=== PATIENT | female | born 1990 | race Hispanic/Latino ===

== ENCOUNTER 2019-01-01 14:11 | Emergency (ER) | payer SELFPAY ==
--- OUTSIDE RECORDS SUMMARY | 2019-01-01 14:13 | XMS REPORT ---
:1990 [facility] Address [address] [place] [address] Dr. Burgess [address] [place] [id number] Care Team Providers Name Role Phone Unavailable Unavailable Unavailable Problems This patient has no known problems. Allergies, Adverse Reactions, Alerts This patient has no known allergies or adverse reactions. Medications This patient has no known medications.
[2019-01-01 15:09] LABS: Urine Blood 3+ (NEG); Urine Glucose NEGATIVE (NEG); Urine Protein NEGATIVE (NEG)
[2019-01-01 15:18] LABS: Absolute Lymphocytes (CBC) 2.2 K/uL (0.7-4.9); Basophils % 0.5 % (0-1.3); Eosinophils % 10.2 % (0-4.4); Hematocrit 40.1 % (36.0-45.0); Lymphocytes % 22.4 % (15.3-44.8); MPV 9.8 fL (7.6-11.3); Monocytes % 6.2 % (3.3-12.3); RBC Red Blood Cell Count 4.54 M/uL (3.86-4.86)
[2019-01-01] MEDS ORDERED: KETOROLAC 30 MG/ML INJ ONE (15:19)
[2019-01-01] MEDS ORDERED: NA CHLORIDE 0.9% 1,000 ML ONE (15:19)
[2019-01-01] MEDS ORDERED: FAMOTIDINE 20 MG/2 ML VIAL IV ONE (15:19)
[2019-01-01 15:32] LABS: ALT/SGPT 16 U/L (12-78); AST/SGOT 14 U/L (15-37); Albumin 3.6 g/dL (3.4-5.0); Alkaline Phosphatase 82 U/L (45-117); BUN Blood Urea Nitrogen 14 mg/dL (7-18); Bicarbonate 27 mmol/L (21-32); Bilirubin Direct < 0.1 mg/dL (0-0.2); Bilirubin Total 0.2 mg/dL (0.2-1.0); Glucose Level 111 mg/dL (74-106); Lipase 336 U/L (73-393); Potassium 3.8 mmol/L (3.5-5.1); Protein, Total 7.8 g/dL (6.4-8.2); Sodium Level 142 mmol/L (136-145)
--- NOTE | 2019-01-01 16:28 | EDPHYS ---
Physician Documentation [facility] Name: Kellie Ortega Age: 28 yrs Sex: Female : 1990 Arrival Date: 01/01/2019 Time: 14:14 Bed 19 Private MD: ED Physician Enrico Mcleod HPI: 01/01 15:40 This 28 yrs old Female presents to ER via Ambulatory with complaints of kb Abdominal Pain. 15:40 The patient presents with abdominal pain in the right upper quadrant. Onset: The kb symptoms/episode began/occurred 10 day(s) ago, and became worse today. The symptoms radiate to back. Associated signs and symptoms: none. The symptoms are described as dull, intermittent. Modifying factors: The symptoms are alleviated by nothing, the symptoms are aggravated by nothing. Severity of pain: At its worst the pain was moderate in the emergency department the pain is unchanged. The patient has not experienced similar symptoms in the past. The patient has been recently seen by a physician:. Pt reports upper abd pain that started 10 days ago. States the pain has been intermittent. Today the pain started 2 hours ago and has persisted. States the pain is random when it comes. Was seen at the clinic for this and tested negative for H.Pylori. Historical: - Allergies: 14:33 PENICILLINS; la1 - PMHx: 14:33 None; la1 - Immunization history:: Adult Immunizations up to date. - Social history:: Smoking status: Patient/guardian denies using tobacco. - Ebola Screening: : No symptoms or risks identified at this time. ROS: 15:39 Constitutional: Negative for fever, chills, and weight loss, Cardiovascular: Negative kb for chest pain, palpitations, and edema, Respiratory: Negative for shortness of breath, cough, wheezing, and pleuritic chest pain, Back: Negative for injury and pain, : Negative for injury, bleeding, discharge, and swelling, MS/Extremity: Negative for injury and deformity, Skin: Negative for injury, rash, and discoloration, Neuro: Negative for headache, weakness, numbness, tingling, and seizure. 15:39 Abdomen/GI: Positive for abdominal pain, Negative for nausea, vomiting, and diarrhea, constipation, abdominal cramps, abdominal distension, anorexia. Exam: 15:39 Constitutional: This is a well developed, well nourished patient who is awake, alert, kb and in no acute distress. Head/Face: Normocephalic, atraumatic. ENT: Nares patent. No nasal discharge, no septal abnormalities noted. Tympanic membranes are normal and external auditory canals are clear. Oropharynx with no redness, swelling, or masses, exudates, or evidence of obstruction, uvula midline. Mucous membranes moist. Neck: Trachea midline, no thyromegaly or masses palpated, and no cervical lymphadenopathy. Supple, full range of motion without nuchal rigidity, or vertebral point tenderness. No Meningismus. Chest/axilla: Normal chest wall appearance and motion. Nontender with no deformity. No lesions are appreciated. Cardiovascular: Regular rate and rhythm with a normal S1 and S2. No gallops, murmurs, or rubs. Normal PMI, no JVD. No pulse deficits. Respiratory: Lungs have equal breath sounds bilaterally, clear to auscultation and percussion. No rales, rhonchi or wheezes noted. No increased work of breathing, no retractions or nasal flaring. Back: No spinal tenderness. No costovertebral tenderness. Full range of motion. Skin: Warm, dry with normal turgor. Normal color with no rashes, no lesions, and no evidence of cellulitis. MS/ Extremity: Pulses equal, no cyanosis. Neurovascular intact. Full, normal range of motion. Neuro: Awake and alert, GCS 15, oriented to person, place, time, and situation. Cranial nerves II-XII grossly intact. Motor strength 5/5 in all extremities. Sensory grossly intact. Cerebellar exam normal. Normal gait. 15:39 Abdomen/GI: Inspection: abdomen appears normal, Bowel sounds: normal, in all quadrants, Palpation: soft, in all quadrants, moderate abdominal tenderness, in the epigastric area. Vital Signs: 14:33 BP 138 / 78; Pulse 70; Resp 16; Temp 97.6; Pulse Ox 98% on R/A; Weight 58.97 kg; Height la1 5 ft. 2 in. (157.48 cm); Pain 8/10; 15:42 BP 116 / 62; Pulse 66; Resp 18; Pulse Ox 99% on R/A; Pain 0/10; em 16:50 BP 104 / 64; Pulse 66; Resp 18; Pulse Ox 99% on R/A; em 14:33 Body Mass Index 23.78 (58.97 kg, 157.48 cm) la1 MDM: 14:27 Patient medically screened. kb 15:39 Data reviewed: vital signs, nurses notes. Data interpreted: Pulse oximetry: on room air kb is 98 %. Interpretation: normal. 16:27 Counseling: I had a detailed discussion with the patient and/or guardian regarding: the kb historical points, exam findings, and any diagnostic results supporting the discharge/admit diagnosis, lab results, radiology results, the need for outpatient follow up, a family practitioner, a salesperson art objects, to return to the emergency department if symptoms worsen or persist or if there are any questions or concerns that arise at home. 01/01 14:33 Order name: Basic Metabolic Panel; Complete Time: 15:35 kb 01/01 14:33 Order name: CBC with Diff; Complete Time: 15:28 kb 01/01 14:33 Order name: Hepatic Function; Complete Time: 15:35 kb 01/01 14:33 Order name: Lipase; Complete Time: 15:35 kb 01/01 15:04 Order name: Urine Dipstick--Ancillary (enter results); Complete Time: 15:14 eb 01/01 15:04 Order name: Urine --Ancillary (enter results); Complete Time: 15:14 eb 01/01 14:33 Order name: IV Saline Lock; Complete Time: 15:13 kb 01/01 14:33 Order name: Labs collected and sent; Complete Time: 15:13 kb 01/01 15:39 Order name: US Abdomen Limited kb Administered Medications: 15:05 Drug: Pepcid 20 mg Route: IVP; Site: right antecubital; iw 16:30 Follow up: Response: No adverse reaction; Pain is decreased em 15:06 Drug: TORadol 30 mg Route: IVP; Site: right antecubital; iw 16:30 Follow up: Response: No adverse reaction; Pain is decreased em 15:13 Drug: NS 0.9% 1000 ml Route: IV; Rate: 1000 ml; Site: right antecubital; em 16:29 Follow up: IV Status: Completed infusion; IV Intake: 1000ml em Disposition: 01/01/19 16:28 Discharged to Home. Impression: Upper abdominal pain, unspecified. - Condition is Stable. - Discharge Instructions: Abdominal Pain, Adult, [id number]. - Prescriptions for Bentyl 20 mg Oral Tablet - take 1 tablet by ORAL route every 6 hours As needed; 20 tablet. - Medication Reconciliation Form, Thank You Letter, Antibiotic Education, Prescription Opioid Use form. - Follow up: Emergency Department; When: As needed; Reason: Worsening of condition. Follow up: Private Physician; When: 2 - 3 days; Reason: Recheck today's complaints, Continuance of care, Re-evaluation by your physician. Addendum: 01/03/2019 09:37 Co-signature as Attending Physician, Enrico Mcleod MD I agree with the assessment and c hatch plan of care. Signatures: Dispatcher [employer] EDAliza Das, KALEY-C WOOL HAT FLANGER-Enrico Gonzales MD MD cha Munoz, Edgar, PACKAGE SORTER PACKAGE SORTER em Cindy Chatterjee, RN RN iw Shahriar Girard RN RN la1 Corrections: (The following items were deleted from the chart) 01/01 16:51 16:28 01/01/2019 16:28 Discharged to Home. Impression: Upper abdominal pain, em unspecified. Condition is Stable. Forms are Medication Reconciliation Form, Thank You Letter, Antibiotic Education, Prescription Opioid Use. Follow up: Emergency Department; When: As needed; Reason: Worsening of condition. Follow up: Private Physician; When: 2 - 3 days; Reason: Recheck today's complaints, Continuance of care, Re-evaluation by your physician. kb
--- NOTE | 2019-01-01 16:28 | ER ---
Nurse's Notes [facility] Name: Kellie Ortega Age: 28 yrs Sex: Female : 1990 Arrival Date: 01/01/2019 Time: 14:14 Bed 19 Private MD: Diagnosis: Upper abdominal pain, unspecified Presentation: 01/01 14:32 Presenting complaint: Patient states: I have had really bad upper abd pain that la1 radiates to my back for the last hour. Transition of care: patient was not received from another setting of care. Onset of symptoms was January 01, 2019. Risk Assessment: Do you want to hurt yourself or someone else? Patient reports no desire to harm self or others. Initial Sepsis Screen: Does the patient meet any 2 criteria? No. Patient's initial sepsis screen is negative. Does the patient have a suspected source of infection? No. Patient's initial sepsis screen is negative. Care prior to arrival: None. 14:32 Method Of Arrival: Ambulatory la1 14:32 Acuity: FOREST 3 la1 Historical: - Allergies: 14:33 PENICILLINS; la1 - PMHx: 14:33 None; la1 - Immunization history:: Adult Immunizations up to date. - Social history:: Smoking status: Patient/guardian denies using tobacco. - Ebola Screening: : No symptoms or risks identified at this time. Screenin:00 Abuse screen: Denies threats or abuse. Nutritional screening:. Tuberculosis screening: em No symptoms or risk factors identified. Fall Risk None identified. Assessment: 15:00 General: Appears in no apparent distress. uncomfortable, Behavior is calm, cooperative, em Denies fever. Pain: Complains of pain in epigastric area. Neuro: Level of Consciousness is awake, alert, obeys commands, Oriented to person, place, time, situation. Cardiovascular: Capillary refill < 3 seconds Patient's skin is warm and dry. Respiratory: Airway is patent Respiratory effort is even, unlabored, Respiratory pattern is regular, symmetrical. GI: Abdomen is flat, Bowel sounds present X 4 quads. Abd is soft X 4 quads Abdomen is tender to palpation in epigastric area Patient currently denies diarrhea, nausea, vomiting. : Denies burning with urination. Derm: Skin is intact, is healthy with good turgor, Skin is pink, warm \T\ dry. Musculoskeletal: Capillary refill < 3 seconds, Range of motion: intact in all extremities. 15:15 Reassessment: Patient appears in no apparent distress at this time. I agree with above iw assessment by Jesus Seay LVN. 15:41 Reassessment: Patient appears in no apparent distress at this time. Patient and/or em family updated on plan of care and expected duration. Pain level reassessed. Patient is alert, oriented x 3, equal unlabored respirations, skin warm/dry/pink. Patient denies pain at this time. Patient states feeling better. Patient states symptoms have improved. 16:46 Reassessment: Patient appears in no apparent distress at this time. Patient and/or em family updated on plan of care and expected duration. Pain level reassessed. Patient is alert, oriented x 3, equal unlabored respirations, skin warm/dry/pink. Vital Signs: 14:33 BP 138 / 78; Pulse 70; Resp 16; Temp 97.6; Pulse Ox 98% on R/A; Weight 58.97 kg; Height la1 5 ft. 2 in. (157.48 cm); Pain 8/10; 15:42 BP 116 / 62; Pulse 66; Resp 18; Pulse Ox 99% on R/A; Pain 0/10; em 16:50 BP 104 / 64; Pulse 66; Resp 18; Pulse Ox 99% on R/A; em 14:33 Body Mass Index 23.78 (58.97 kg, 157.48 cm) la1 ED Course: 14:14 Patient arrived in ED. mr 14:26 Aliza Ray FNP-C [facility]. kb 14:26 Enrico Mcleod MD is Attending Physician. kb 14:33 Triage completed. la1 14:33 Arm band placed on left wrist. la1 14:34 Jesus Seay LVN is Primary Nurse. em 15:00 Patient has correct armband on for positive identification. Placed in gown. Bed in low em position. Side rails up X2. Adult w/ patient. Pulse ox on. NIBP on. 15:00 Initial lab(s) drawn, by me, sent to lab. Urine collected: clean catch specimen, clear. em Inserted saline lock: 20 gauge in right antecubital area, using aseptic technique. Blood collected. 16:18 US Abdomen Limited In Process Unspecified. EDMS 16:46 No provider procedures requiring assistance completed. IV discontinued, intact, em bleeding controlled, No redness/swelling at site. Pressure dressing applied. Administered Medications: 15:05 Drug: Pepcid 20 mg Route: IVP; Site: right antecubital; iw 16:30 Follow up: Response: No adverse reaction; Pain is decreased em 15:06 Drug: TORadol 30 mg Route: IVP; Site: right antecubital; iw 16:30 Follow up: Response: No adverse reaction; Pain is decreased em 15:13 Drug: NS 0.9% 1000 ml Route: IV; Rate: 1000 ml; Site: right antecubital; em 16:29 Follow up: IV Status: Completed infusion; IV Intake: 1000ml em Intake: 16:29 IV: 1000ml; Total: 1000ml. em Outcome: 16:28 Discharge ordered by MD. kb 16:46 Discharged to home ambulatory, with family. em 16:46 Condition: good 16:46 Discharge instructions given to patient, Instructed on discharge instructions, follow up and referral plans. medication usage, Demonstrated understanding of instructions, follow-up care, medications, Prescriptions given X 1. 16:51 Patient left the ED. em Signatures: Dispatcher [employer] EDMN Aliza Ray, MAYELIN HOLIDAY DETECTOR OPERATOR-Francine Boyd mr SeayJesus, MOBILE PRODUCT MANAGER MOBILE PRODUCT MANAGER em Cindy Chatterjee, RN Shahriar Montilla RN RN la1
--- NOTE | 2019-01-01 17:55 | RAD REPORT ---
EXAM DESCRIPTION: US - Abdomen Exam Limited - 01/01/2019 4:19 pm CLINICAL HISTORY: Abdominal pain COMPARISON: None. FINDINGS: No gallstones, sludge or other abnormalities within the gallbladder lumen. There is no wal l thickening or pericholecystic fluid. No common duct stone or biliary tree dilatation identified. IMPRESSION: Normal gallbladder and biliary tree ultrasound.
== END 2019-01-01 16:51 | disposition home or self-care (01) ==
LOC: ER 14:11
DX: R10.11 Right upper quadrant pain (principal); Z88.0 Allergy status to penicillin
CPT/HCPCS: 36415; 76705; 80048; 80076; 81003; 81025; 83690; 85025; 96361; 96374; 96375; 99284; J7030

== ENCOUNTER 2019-09-30 15:01 | Emergency (ER) | payer OTHER, SELFPAY ==
--- OUTSIDE RECORDS SUMMARY | 2019-09-30 15:03 | XMS REPORT | Summary of Care ---
:[address] [facility] Address [address] [place] [id number] Care Team Providers Name Role Phone Pcp, Patient Does Not Have A Primary Care Provider Reason for Referral MRI/CAT Scan (STAT) Status Reason Specialty Diagnoses / Referred By Referred To Procedures Contact Contact New Request Diagnostic Diagnoses Pain of upper abdomen Vasut, Yusuf J Radiology Procedures CT ABDOMEN PELVIS W CONTRAST [address] [place] [address] MRI/CAT Scan (STAT) Status Reason Specialty Diagnoses / Referred By Referred To Procedures Contact Contact New Request Diagnostic Diagnoses Pain of upper abdomen Vasut, Yusuf J Radiology Procedures CT ABDOMEN PELVIS W CONTRAST [address] [address] Reason for Visit Reason Comments Abdominal Pain Auth/Cert Status Reason Specialty Diagnoses / Referred By Referred To Procedures Contact Contact Emergency Medicine [facility] [address] [place] [phone] Encounter Details Date Type Department Care Team Description 02/18/2019 - Emergency [facility] Vasut, Yusuf J Pain of upper abdomen 02/19/[address] [place] [address] (Primary Dx) [address] [place] [phone] Allergies Active Allergy Reactions Severity Noted Date Comments Nitrofurantoin Monohyd/M-Cryst Rash 10/30/2014 Penicillins Rash 12/01/2018 documented as of this encounter (statuses as of 02/19/2019) Medications Medication Sig Dispensed Refills Start Date End Date Status Condoms Latex Use as directed 12 Each 0 10/31/2014 Active Non-Lubricated (TRUSTEX-KEVIN NON-LUB CONDOMS) Nicole acyclovir 400 mg Take 1 tablet by 60 tablet 12 12/01/2018 Active tabletIndications: mouth 2 (two) Herpes simplex virus times daily. (HSV) type I or type II DNA not detected by PCR ciprofloxacin HCl 500 Take 1 tablet by 14 tablet 0 02/19/2019 02/26/2019 Active mg tabletIndications: mouth 2 (two) Pain of upper abdomen times daily for 7 days. famotidine 20 mg Take 1 tablet by 30 tablet 0 02/19/2019 Active tabletIndications: mouth 2 (two) Pain of upper abdomen times daily. documented as of this encounter (statuses as of 02/19/2019) Active Problems Problem Noted Date Family planning counseling 05/01/2016 Well woman exam without gynecological exam 05/01/2016 Screen for STD (sexually transmitted disease) 05/01/2016 Mixed hyperlipidemia 05/01/2016 Genital herpes 09/16/2012 documented as of this encounter (statuses as of 02/19/2019) Resolved Problems Problem Noted Date Resolved Date Urinary tract infection, site not specified 10/17/2014 05/01/2016 Encounter for routine gynecological examination 10/17/2014 11/23/2014 Overview: ICD10 Diagnosis Term Bander Operator Utility Screening for STD (sexually transmitted disease) 10/17/2014 11/23/2014 General counseling and advice for contraceptive management 10/17/20142015 Overview: ICD10 Diagnosis Term Bander Operator Utility Other general counseling and advice for contraceptive 05/09/2013 07/20/2013 management History of section, classical 04/04/2013 10/17/2014 Immune to rubella 12/08/2012 04/21/2013 Maternal varicella, non-immune 11/17/2012 07/20/2013 Overview: Give pp Rash and other nonspecific skin eruption 10/15/2012 04/21/2013 Overview: Resolved. Supervision of other high-risk 09/16/2012 07/20/2013 Overview: ICD10 Diagnosis Term Bander Operator Utility Screening examination for pulmonary tuberculosis 09/16/2012 07/20/2013 Overview: Hx of positive PPD. Negative chest x-ray. 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 Will start 17 OHP at 16 weeks. S/P emergency 09/16/2012 07/20/2013 Overview: Pt delivered via classical c/s at 27 weeks for ACD with PPROM and transverse lie , had received BMZ, amp/ees, and previously mag sulfate, indocin, and nifedipine. delivery delivered 10/03/2008 09/16/2012 Overview: ICD10 Diagnosis Term Bander Operator Utility Threatened premature labor, antepartum(644.03) 09/27/2008 10/03/2008 Early onset of delivery with baby delivered 09/07/2007 09/16/2012 Overview: ICD10 Diagnosis Term Bander Operator Utility Other infants, 500-749 grams(765.12) 09/07/2007 09/16/2012 Insufficient care 09/07/2007 09/16/2012 Breech presentation delivered 09/07/2007 09/16/2012 Overview: ICD10 Diagnosis Term Bander Operator Utility anemia 09/07/2007 09/16/2012 Overview: ICD10 Diagnosis Term Bander Operator Utility Routine or child health check 03/19/2007 09/16/2012 Overview: 10yr, 11yr, 12yr, 13yr, 14yr, 15yr Acute pharyngitis 03/19/2007 09/16/2012 Overview: viral Abdominal pain 03/19/2007 09/16/2012 Overview: ICD10 Diagnosis Term Bander Operator Utility Other and unspecified diseases of upper respiratory tract 03/19/20072012 Contusion of foot 03/19/2007 09/16/2012 Overview: right documented as of this encounter (statuses as of 02/19/2019) Immunizations Name Administration Dates Next Due HEPATITIS A 02/05/2007 HPV 02/05/2007 Influenza Virus Vaccine 03/24/2013 Meningococcal Vaccine 02/05/2007 Tdap 02/17/2013, 02/05/2007 Varicella (varivax)(chicken pox) 04/24/2013 documented as of this encounter Social History Tobacco Use Types Packs/Day Years Used Date Never Smoker Smokeless Tobacco: Never Used Alcohol Use Drinks/Week oz/Week Comments No Sex Assigned at Date Recorded Not on file Job Start Date Occupation Industry Not on file Not on file Not on file Travel History Travel Start Travel End No recent travel history available. documented as of this encounter Last Filed Vital Signs Vital Sign Reading Time Taken Comments Blood Pressure 110/70 02/19/2019 1:40 AM CDT Pulse 65 02/19/2019 1:40 AM CDT Temperature 36.2 C (97.2 F) 02/19/2019 1:40 AM CDT Respiratory Rate 14 02/19/2019 1:40 AM CDT Oxygen Saturation 99% 02/19/2019 1:40 AM CDT Inhaled Oxygen Concentration - - Weight 57.2 kg (126 lb 1.6 oz) 02/18/2019 11:17 PM CDT Height - - Body Mass Index 23.06 12/20/2018 7:58 PM CDT documented in this encounter Discharge Instructions Yusuf Schaffer - 02/19/2019 Your diagnosis is: Abdominal Pain, Enteritis, Gastritis Your treatments today included: Orders Placed This Encounter Procedures CT ABDOMEN PELVIS W CONTRAST CBC WITH DIFF COMP. METABOLIC PANEL (83482) URINALYSIS TEST, SERUM LIPASE CBC WITH DIFFERENTIAL GALV/CLC ONLY - URINE DRUG (IMMUNOASSAY) - COMPREHENSIVE DRUG SCREEN Your prescriptions today are: Pepcid twice daily, Ciprofloxacin x 7 days You will need to follow-up with your Primary Care Provider: 2 day(s) If you do not have a primary care provider, you will need to arrange for your own. If you need assistance with this, the discharge planners can help you identify resources appropriate for you. See further medical attention for: Worsening symptoms, severe pain, fever, vomiting or inability to take/keep down fluids. documented in this encounter Plan of Treatment Date Type Specialty Care Team Description 03/03/2019 Office Visit Gastroenterology Lily Winters PA [address] [place] [address] [phone] Name Type Priority Associated Diagnoses Date/Time CT ABDOMEN PELVIS W IMAGING STAT Pain of upper abdomen 02/19/2019 1:53 AM CONTRAST CDT GALV/CLC ONLY - URINE LAB STAT Add-On Pain of upper abdomen 02/19/2019 12: 00 AM DRUG (IMMUNOASSAY) - CDT COMPREHENSIVE DRUG SCREEN Name Type Priority Associated Diagnoses Order Schedule GALV/CLC ONLY - URINE LAB STAT Add-On Pain of upper abdomen ONCE for 1 Occurrences DRUG (IMMUNOASSAY) - starting 02/19/2019 COMPREHENSIVE DRUG SCREEN until 02/19/2019 Health Maintenance Due Date Last Done Comments VARICELLA VACCINES (2 of 2 05/22/2013 04/24/2013 - 13+ 2-dose series) PAP SMEAR 10/17/2017 10/17/2014, 07/20/2013, 08/09/2012, Additional history exists INFLUENZA VACCINE 03/13/2019 03/24/2013 DTaP,Tdap,and Td Vaccines 02/17/2023 02/17/2013, 02/05/2007 (3 - Td) PNEUMOCOCCAL 0-64 YEARS Aged Out No longer eligible COMBINED SERIES based on patient's age to complete this topic documented as of this encounter Procedures Procedure Name Priority Date/Time Associated Comments Diagnosis CBC WITH DIFFERENTIAL STAT 02/19/2019 12:46 Pain of upper Results for this AM CDT abdomen procedure are in the results section. CBC WITH DIFF Routine 02/19/2019 12:46 Pain of upper Results for this AM CDT abdomen procedure are in the results section. TEST, SERUM STAT 02/19/2019 12:30 Pain of upper Results for this AM CDT abdomen procedure are in the results section. URINALYSIS STAT 02/19/2019 12:00 Pain of upper Results for this AM CDT abdomen procedure are in the results section. COMP. METABOLIC PANEL STAT 02/19/2019 12:00 Pain of upper Results for this (39405) AM CDT abdomen procedure are in the results section. LIPASE STAT 02/19/2019 12:00 Pain of upper Results for this AM CDT abdomen procedure are in the results section. documented in this encounter Results CBC WITH DIFFERENTIAL (02/19/2019 12:46 AM CDT) WBC 14.75 (H) 4.30 - 11.10 [facility] 10*3/L SERVICES RBC 4.24 3.93 - 5.25 [facility] 10*6/L SERVICES HGB 12.2 11.6 - 15.0 [facility] g/dL SERVICES HCT 36.9 35.7 - 45.2 % [facility] MCV 87.0 80.6 - 95.5 fL [facility] MCH 28.8 25.9 - 32.8 pg [facility] MCHC 33.1 31.6 - 35.1 [facility] g/dL SERVICES RDW-SD 41.8 39.0 - 49.9 fL [facility] RDW-CV 13.2 12.0 - 15.5 % [facility] PLT 209 166 - 358 [facility] 10*3/L SERVICES MPV 11.2 9.5 - 12.[address] [facility] NRBC/100 WBC 0.0 0.0 - 10.0 /100 [facility] WBCs SERVICES NRBC x10^3 <0.01 10*3/L [facility] SERVICES GRAN MAT (NEUT) % 81.6 % [facility] IMM GRAN % 0.30 % [facility] LYMPH % 12.0 % [facility] MONO % 5.4 % [facility] EOS % 0.5 % [facility] BASO % 0.2 % [facility] GRAN MAT x10^3(ANC) 12.04 (H) 1.88 - 7.09 [facility] 10*3/uL SERVICES IMM GRAN x10^3 0.05 0.00 - 0.06 [facility] 10*3/uL SERVICES LYMPH x10^3 1.77 1.32 - 3.29 [facility] 10*3/uL SERVICES MONO x10^3 0.79 0.33 - 0.92 [facility] 10*3/uL SERVICES EOS x10^3 0.07 0.03 - 0.39 [facility] 10*3/uL SERVICES BASO x10^3 0.03 0.01 - 0.07 [facility] 10*3/uL SERVICES Specimen Blood - VENOUS Performing Organization Address City/State/Zipcode Phone Number [facility] CLIA: [id number], [address] [place] [address] [phone] [facility] TEST, SERUM (02/19/2019 12:30 AM CDT) PREG SERUM Negative [facility] Specimen Blood - VENOUS Narrative Performed At Less than 10 IU/L.If low titer or ectopic is [facility] suspected, resubmit specimen in 48-72 hours. Performing Organization Address City/State/Zipcode Phone Number [facility] CLIA: [id number], [address] [place] [id number] [phone] [facility] LIPASE (02/19/2019 12:00 AM CDT) LIPASE 296 (H) 0 - 220 U/L [facility] Specimen Blood - VENOUS Performing Organization Address [facility] Phone Number [facility] CLIA: [id number], [address] [place] [phone] [facility] URINALYSIS (02/19/2019 12:00 AM CDT) APPEARANCE Turbid (A) Clear [facility] COLOR Yellow Yellow [facility] PH 7.0 4.8 - 8.[address] [facility] SP GRAVITY 1.023 1.003 - 1.[address] [facility] GLU U QUAL Normal Normal [facility] BLOOD Negative Negative [facility] KETONES Negative Negative [facility] PROTEIN Negative Negative [facility] UROBILIN Normal Normal [facility] BILIRUBIN Negative Negative [facility] NITRITE Negative Negative [facility] [place] ARNULFO 25/uL (A) Negative [facility] RBC/HPF <1 0 - [address] [facility] WBC/HPF <1 0 - [address] [facility] BACTERIA Many (A) Negative [facility] MUCOUS Slight (A) Negative LPF [facility] SQ EPITH 11 (H) <=[address] [facility] Specimen Urine - URINE, CLEAN CATCH Performing Organization Address [facility] Phone Number [facility] CLIA: [id number], [address] [place] [phone] [facility] COMP. METABOLIC PANEL ([id number]) (02/19/2019 12:00 AM CDT) NA 138 135 - [address] [facility] mmol/L SERVICES K 4.1Comment: 3.5 - 5.[address] [facility] Slight hemolysis mmol/L SERVICES CL 104 98 - [address] [facility] mmol/L SERVICES CO2 TOTAL 27 23 - [address] [facility] mmol/L SERVICES AGAP 7 2 - [address] [facility] SERVICES BUN 15Comment: Slight 7 - 23 mg/dL [facility] hemolysis SERVICES GLUCOSE 113 (H) 70 - [address] [facility] mg/dL SERVICES CREATININE 0.67 0.50 - 1.[address] [facility] mg/dL SERVICES TOTAL BILI 0.4 0.1 - 1.[address] [facility] mg/dL SERVICES CALCIUM 9.2 8.6 - 10.[address] [facility] mg/dL SERVICES T PROTEIN 7.4 6.3 - 8.[address] [facility] g/dL SERVICES ALBUMIN 3.9 3.5 - 5.[address] [facility] g/dL SERVICES ALK PHOS 80Comment: Slight 34 - 122 U/L [facility] hemolysis SERVICES ALT(SGPT) 18Comment: Slight 9 - 51 U/L [facility] hemolysis SERVICES AST(SGOT) 26Comment: Slight 13 - 40 U/L [facility] hemolysis SERVICES eGFR Calculation 104.1 mL/min/1.73m2 [facility] (Non- SERVICES [place]) eGFR Calculation 126.1 mL/min/1.73m2 [facility] () SERVICES Specimen Blood - VENOUS Narrative Performed At Association of Glomerular Filtration Rate (GFR) and Staging [facility] of Kidney Disease* + + + + | GFR (mL/min/1.73 m2)| With Kidney Damage|Without Kidney Damage + + + + |>90|Stage one| Normal + + + + |60-89|Stage two| Decreased GFR + + + + |30-59|Stage three| Stage three + + + + |15-29|Stage four | Stage four + + + + |<15 (or dialysis)|Stage five | Stage five + + + + *Each stage assumes the associated GFR level has been in effect for at least three months.Stages 1 to 5, with or without kidney disease, indicate chronic kidney disease. Notes: Determination of stages one and two (with eGFR >59mL/min/1.73 m2) requires estimation of kidney damage for at least three months as defined by structural or functional abnormalities of the kidney, manifested by either: Pathological abnormalities or Markers of kidney damage (including abnormalities in the composition of the blood or urine or abnormalities in imaging tests). Performing Organization Address City/State/Zipcode Phone Number [facility] CLIA: [id number], [address] [place] [address] [facility] documented in this encounter Visit Diagnoses Diagnosis Pain of upper abdomen - Primary Abdominal pain, other specified site documented in this encounter Administered Medications Medication Order MAR Action Action Date Dose Rate Site famotidine (PEPCID (PF)) injection Given 02/19/2019 12:47 AM CDT 20 mg 20 mg 20 mg, Slow IV Push, ONCE, 1 dose, 02/19/19 at 0045, ISIDRA iohexol (OMNIPAQUE 350 BULK-100 mL) Given 02/19/2019 1:50 AM CDT 100 mL injection 100 mL 100 mL, Intravenous, ONCE, 1 dose, 02/19/19 at 0200, Routine documented in this encounter Insurance Payer Benefit Plan / Subscriber ID Effective Phone Address Type Group Dates MEDICAID MEDICAID [place] PENDING 2019-[address] [place] [address] documented as of this encounter Advance Directives Type Date Recorded Patient Gluing Machine Operator Explanation Advance Directives and Living Will Power of Technical Customer Support Specialist"
--- OUTSIDE RECORDS SUMMARY | 2019-09-30 15:03 | XMS REPORT ---
:1990 Author Organization [facility] Address [address] [place] [address] Dr. [address] [place] [id number] Care Team Providers Name Role Phone Unavailable Unavailable Unavailable Problems This patient has no known problems. Allergies, Adverse Reactions, Alerts This patient has no known allergies or adverse reactions. Medications This patient has no known medications.
--- OUTSIDE RECORDS SUMMARY | 2019-09-30 15:04 | XMS REPORT | Summary of Care ---
:1990 Author Organization [facility] Address [address] [place] [id number] Care Team Providers Name Role Phone Pcp, Patient Does Not Have A Primary Care Provider Reason for Visit Reason Comments New Patient Abdominal Pain Encounter Details Date Type Department Care Team Description 03/03/2019 Office Visit [facility] Lily Winters Abdominal pain, epigastric (Primary Dx); GASTROENTEROLOGY -ELINA Brink History of Helicobacter pylori infection; [facility] [address] [place] [address] [phone] Allergies Active Allergy Reactions Severity Noted Date Comments Nitrofurantoin Monohyd/M-Cryst Rash 10/30/2014 Penicillins Rash 12/01/2018 documented as of this encounter (statuses as of 03/03/2019) Medications Medication Sig Dispensed Refills Start Date End Date Status Condoms Latex Use as 12 Each 0 10/31/2014 Active Non-Lubricated directed (TRUSTEX-KEVIN NON-LUB CONDOMS) Nicole famotidine 20 mg Take 1 tablet 30 tablet 0 02/19/2019 Active tabletIndications: by mouth 2 Pain of upper (two) times abdomen daily. omeprazole 40 mg Take 1 capsule 30 capsule 5 03/03/2019 Active capsuleIndications by mouth : Abdominal pain, daily. epigastric, History of Helicobacter pylori infection acyclovir 400 mg Take 1 tablet 60 tablet 12 12/01/2018 03/03/2019 Discontinued tabletIndications: by mouth 2 Herpes simplex (two) times virus (HSV) type I daily. or type II DNA not detected by PCR documented as of this encounter (statuses as of 03/03/2019) Active Problems Problem Noted Date Family planning counseling 05/01/2016 Well woman exam without gynecological exam 05/01/2016 Screen for STD (sexually transmitted disease) 05/01/2016 Mixed hyperlipidemia 05/01/2016 Genital herpes 09/16/2012 documented as of this encounter (statuses as of 03/03/2019) Resolved Problems Problem Noted Date Resolved Date Urinary tract infection, site not specified 10/17/2014 05/01/2016 Encounter for routine gynecological examination 10/17/2014 11/23/2014 Overview: ICD10 Diagnosis Term Ballast Inspector Utility Screening for STD (sexually transmitted disease) 10/17/2014 11/23/2014 General counseling and advice for contraceptive management 10/17/20142015 Overview: ICD10 Diagnosis Term Ballast Inspector Utility Other general counseling and advice for contraceptive 05/09/2013 07/20/2013 management History of section, classical 04/04/2013 10/17/2014 Immune to rubella 12/08/2012 04/21/2013 Maternal varicella, non-immune 11/17/2012 07/20/2013 Overview: Give pp Rash and other nonspecific skin eruption 10/15/2012 04/21/2013 Overview: Resolved. Supervision of other high-risk 09/16/2012 07/20/2013 Overview: ICD10 Diagnosis Term Ballast Inspector Utility Screening examination for pulmonary tuberculosis 09/16/2012 [...] delivered 10/03/2008 09/16/2012 Overview: ICD10 Diagnosis Term Ballast Inspector Utility Threatened premature labor, antepartum(644.03) 09/27/2008 10/03/2008 Early onset of delivery with baby delivered 09/07/2007 09/16/2012 Overview: ICD10 Diagnosis Term Ballast Inspector Utility Other infants, 500-749 grams(765.12) 09/07/2007 09/16/2012 Insufficient care 09/07/2007 09/16/2012 Breech presentation delivered 09/07/2007 09/16/2012 Overview: ICD10 Diagnosis Term Ballast Inspector Utility anemia 09/07/2007 09/16/2012 Overview: ICD10 Diagnosis Term Ballast Inspector Utility Routine or child health check 03/19/2007 09/16/2012 Overview: 10yr, 11yr, 12yr, 13yr, 14yr, 15yr Acute pharyngitis 03/19/2007 09/16/2012 Overview: viral Abdominal pain 03/19/2007 09/16/2012 Overview: ICD10 Diagnosis Term Ballast Inspector Utility Other and unspecified diseases of upper respiratory tract 03/19/20072012 Contusion of foot 03/19/2007 09/16/2012 Overview: right documented as of this encounter (statuses as of 03/03/2019) Immunizations Name Administration Dates Next Due HEPATITIS [...] Sign Reading Time Taken Comments Blood Pressure 122/81 03/03/2019 8:05 AM CDT Pulse 61 03/03/2019 8:05 AM CDT Temperature 36.1 C (97 F) 03/03/2019 8:05 AM CDT Respiratory Rate 16 03/03/2019 8:05 AM CDT Oxygen Saturation 100% 03/03/2019 8:05 AM CDT Inhaled Oxygen Concentration - - Weight 57.7 kg (127 lb 3.2 oz) 03/03/2019 8:05 AM CDT Height 157.5 cm (5' 2") 03/03/2019 8:05 AM CDT Body Mass Index 23.27 03/03/2019 8:05 AM CDT documented in this encounter Progress Notes Lily Winters PA - 03/03/2019 8:00 AM CDT GI Clinic Note Date: 03/03/2019 08:45 Chief Complaint: ER F/U History of Present Illness: Kellie Donald is a 29 year old female presents in the clinic for ER F/U. She reports having intermittent epigastric pain that radiates to lower abdomen about once every 2 weeks for the past 3-4 months. She went to [facility] ER 02/18/[address] scan showing enteritis. She was discharged on Cipro and Pepcid and reports no improvement since then. She still has intermittent epigastric pain but not as back as when she went to the ER. Pain is dull, no associated with eating or having BMs. She had diarrhea associated with the abdominal pain only when she recently went to [facility] ER. BMs are regular, formed, no blood. No FHx of GI cancers. She tried taking Aleve and Tylenol for the abdominal pain with no relief. She denies heartburn, reflux, vomiting, dysphagia, melena, unintentional weight loss, constipation,rectal bleeding, smoking, drinking etoh. She is recently , moved in with her mother, and back to school in the past few months which has increased a lot of stress for her. She thinks this may be contributing to her symptoms. 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 Past Surgical History: She has a past surgical history that includes delivery only (04/23/2013); section (10/03/2008); and section ( 04/22/2013). Social History: Her reports that she has never smoked. She has never used smokeless tobacco. She reports that she does not drink alcohol or use drugs., , Family History: She family history includes Breast Cancer in her mother; Diabetes in her father; Hypertension in her father. Allergies: is allergic to macrobid [nitrofurantoin monohyd/m-cryst] and pcn [ penicillins]. Medications: Scheduled Medications: Current Outpatient Medications Medication Sig Dispense Refill omeprazole 40 mg capsule Take 1 capsule by mouth daily. 30 capsule 5 famotidine 20 mg tablet Take 1 tablet by mouth 2 (two) times daily. 30 tablet 0 Condoms Latex Non-Lubricated (TRUSTEX-KEVIN NON-LUB CONDOMS) Nicole Use as directed 12 Each 0 No current facility-administered medications for this visit. Review of Systems: General: No recent fever or chills, no recent weight loss nor weight gain HEENT: No visual disturbances, hearing loss, tinnitus, nor vertigo CVS: No chest pain, palpitations, orthopnea, nor PND Resp: No dyspnea, asthma, chronic cough, nor hemoptysis GI: SEE HPI : No dysuria, hematuria, nor nocturia Musculoskeletal: No joint swelling, joint pain, cramping nor weakness Derm: No rash, suspicious skin lesions, skin cancer nor skin ulcers Neuro: No seizures, nor stroke Endo: No diabetes nor thyroid disease Heme: No abnormal bruising or bleeding Allergy: No urticaria, allergic rash, nor recurrent infections Psych: No depression, anxiety, nor mood swings Physical Exam: Temp: [36.1 C (97 F)] Pulse: [61] Resp: [16] BP: (122)/(81) @LASTSAO2(3)@ General: Alert, awake, calm, in no acute respiratory distress Skin: no vascular spiders, no jaundice, no vitiligo, no rash, no excoriations Head: normocephalic, atraumatic, no wasting of temporalis or masseter musculature Mouth/Throat: no bleeding from mucous membranes, no oropharyngeal ulcers Neck: supple, midline trachea, no thyromegaly, no jugular venous distension, no carotid bruits Lymph Nodes: no palpable cervical, supraclavicular, axillary, or inguinal lymphadenopathy Chest: no spinal or renal angle tenderness, no chest wall abnormality, no kyphosis or scoliosis Lungs: clear to percussion and auscultation Heart: regular rate and rhythm, normal S1 and S2, no murmur, gallop or rub Abdomen: soft, nondistended, nontender, no palpable liver or spleen, no ascites , no bruit, normal bowel sounds Musculoskeletal: no muscle tenderness or masses Extremities: no cyanosis, clubbing, edema, palmar rubor, or Dupuytren contracture Pulses: intact in upper extremities, intact in lower extremities Neurological: no asterixis or tremor Psychiatric: oriented to place, time, and person, normal affect. Labs: CBC WBC x10^3 (/uL) Date Value 04/23/2013 12.4 (H) WBC (10*3/L) Date Value 02/19/2019 14.75 (H) RBC x10^6 (/uL) Date Value 04/23/2013 2.39 (L) RBC (10*6/L) Date Value 02/19/2019 4.24 PLT x10^3 (/uL) Date Value 04/23/2013 154 (L) PLT (10*3/L) Date Value 02/19/2019 209 HGB Date Value 02/19/2019 12.2 g/dL 04/23/2013 7.2 G/DL (L) HCT (%) Date Value 02/19/2019 36.9 04/23/2013 21.2 (L) CMP NA (mmol/L) Date Value 02/19/2019 138 K (mmol/L) Date Value 02/19/2019 4.1 CALCIUM (mg/dL) Date Value 02/19/2019 9.2 CL (mmol/L) Date Value 02/19/2019 104 BUN (mg/dL) Date Value 02/19/2019 15 CREATININE (mg/dL) Date Value 02/19/2019 0.67 GLUCOSE (mg/dL) Date Value 02/19/2019 113 (H) CO2 TOTAL (mmol/L) Date Value 02/19/2019 27 ALBUMIN (g/dL) Date Value 02/19/2019 3.9 T PROTEIN (g/dL) Date Value 02/19/2019 7.4 TOTAL BILI (mg/dL) Date Value 02/19/2019 0.4 ALT(SGPT) (U/L) Date Value 02/19/2019 18 AST(SGOT) (U/L) Date Value 02/19/2019 26 ALK PHOS (U/L) Date Value 02/19/2019 80 Radiology: CT Abd/Pelvis Assessment and Plan: 1. Abdominal pain, epigastric (primary encounter diagnosis) 2. History of Helicobacter pylori infection 3. Enteritis - She reports having intermittent epigastric pain that radiates to lower abdomen about once every 2 weeks for the past 3-4 months. She went to [facility] ER 02/18/[address] scan showing enteritis and no improvement since then taking Pepcid. Will do infectious stool studies including H Pylori as she has h/o H Pylori and PPI trial. - Start Omeprazole 40 mg 30 minutes before breakfast - Check infectious stool studies, calprotectin, H Pylori - Consider TCA at f/u if no improvement for functional dyspepsia as she has no insurance and lacks red flag symptoms F/U 4-6 weeks Signed: Lily Winters PA-C Department of Internal Medicine - Gastroenterology and Hepatology documented in this encounter Plan of Treatment Date Type Specialty Care Team Description 03/31/2019 Office Visit Gastroenterology Lily Winters PA [address] [place] [address] [phone] Name Type Priority Associated Diagnoses Order Schedule FECES CULTURE LAB Routine Enteritis Ordered: 03/03/2019 CALPROTECTIN, FECAL LAB Routine Enteritis Ordered: 03/03/2019 HELICOBACTER PYLORI LAB Routine Abdominal pain, Ordered: 03/03/2019 ANTIGEN, FECAL BY EIA epigastric History of Helicobacter pylori infection GIARDIA CRYPTOSPORIDIUM AG LAB Routine Enteritis Ordered: 03/03/2019 SCR OVA AND PARASITE EXAM FECAL LAB Routine Enteritis Ordered: 03/03/2019 Health Maintenance Due Date Last Done Comments VARICELLA VACCINES (2 of 2 05/22/2013 04/24/2013 - 13+ 2-dose series) PAP SMEAR 10/17/2017 10/17/2014, 07/20/2013, 08/09/2012, Additional history exists INFLUENZA VACCINE (#1) 2019 03/24/2013 DTaP,Tdap,and Td Vaccines 02/17/2023 02/17/2013, 02/05/2007 (3 - Td) PNEUMOCOCCAL 0-64 YEARS Aged Out No longer eligible COMBINED SERIES based on patient's age to complete this topic documented as of this encounter Results Not on filedocumented in this encounter Visit Diagnoses Diagnosis Abdominal pain, epigastric - Primary History of Helicobacter pylori infection Personal history of other infectious and parasitic disease Enteritis Other and unspecified noninfectious gastroenteritis and colitis documented in this encounter Advance Directives Type Date Recorded Patient Title Examiner Explanation Advance Directives and Living Will Power of Practice Clinician
--- OUTSIDE RECORDS SUMMARY | 2019-09-30 15:04 | XMS REPORT | Summary of Care ---
:1990 Author Organization [facility] Address [address] [place] [id number] Care Team Providers Name Role Phone Pcp, Patient Does Not Have A Primary Care Provider Reason for Visit Reason Comments New Patient Abdominal Pain Encounter Details Date Type Department Care Team Description 03/03/2019 Office Visit [facility] Lily Winters Abdominal pain, epigastric (Primary Dx); GASTROENTEROLOGY -ELINA Brink History of Helicobacter pylori infection; [facility] [address] [place] [address] [phone] Allergies Active Allergy Reactions Severity Noted Date [...] examination 10/17/2014 11/23/2014 Overview: ICD10 Diagnosis Term Healthcare Representative Utility Screening for STD (sexually transmitted disease) 10/17/2014 11/23/2014 General counseling and advice for contraceptive management 10/17/20142015 Overview: ICD10 Diagnosis Term Healthcare Representative Utility Other general counseling and advice for contraceptive 05/09/2013 07/20/2013 management History of section, classical 04/04/2013 10/17/2014 Immune to rubella 12/08/2012 04/21/2013 Maternal varicella, non-immune 11/17/2012 07/20/2013 Overview: Give pp Rash and other nonspecific skin eruption 10/15/2012 04/21/2013 Overview: Resolved. Supervision of other high-risk 09/16/2012 07/20/2013 Overview: ICD10 Diagnosis Term Healthcare Representative Utility Screening examination for pulmonary tuberculosis 09/16/2012 [...] delivered 10/03/2008 09/16/2012 Overview: ICD10 Diagnosis Term Healthcare Representative Utility Threatened premature labor, antepartum(644.03) 09/27/2008 10/03/2008 Early onset of delivery with baby delivered 09/07/2007 09/16/2012 Overview: ICD10 Diagnosis Term Healthcare Representative Utility Other infants, 500-749 grams(765.12) 09/07/2007 09/16/2012 Insufficient care 09/07/2007 09/16/2012 Breech presentation delivered 09/07/2007 09/16/2012 Overview: ICD10 Diagnosis Term Healthcare Representative Utility anemia 09/07/2007 09/16/2012 Overview: ICD10 Diagnosis Term Healthcare Representative Utility Routine or child health check 03/19/2007 09/16/2012 Overview: 10yr, 11yr, 12yr, 13yr, 14yr, 15yr Acute pharyngitis 03/19/2007 09/16/2012 Overview: viral Abdominal pain 03/19/2007 09/16/2012 Overview: ICD10 Diagnosis Term Healthcare Representative Utility Other and unspecified diseases of upper [...] the past 3-4 months. She went to [facility] ER 02/18/[address] scan showing enteritis. She was discharged on Cipro and Pepcid and reports no improvement since then. She still has intermittent epigastric pain but not as back as when she went to the ER. Pain is dull, no associated with eating or having BMs. She had diarrhea associated with the abdominal pain only when she recently went to [facility] ER. BMs are regular, formed, no blood. [...] the past 3-4 months. 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
--- OUTSIDE RECORDS SUMMARY | 2019-09-30 15:04 | XMS REPORT | Summary of Care ---
:1990 Author Organization [facility] Address [address] [place] [id number] Care Team Providers Name Role Phone Pcp, Patient Does Not Have A Primary Care Provider Reason for Visit Reason Comments LAB WORK Encounter Details Date Type Department Care Team Description 03/03/2019 Spring Tier Visit [facility] Lily Winters PA [address] [place] [address] [phone] Arrived PHLEBOTOMY/LAB [facility] [address] [facility] [address] [place] [phone] Allergies Active Allergy Reactions Severity Noted Date Comments Nitrofurantoin Monohyd/M-Cryst Rash 10/30/2014 Penicillins Rash 12/01/2018 documented as of this encounter (statuses as of 03/03/2019) Medications Medication Sig Dispensed Refills Start Date End Date Status Condoms Latex Use as directed 12 Each 0 10/31/2014 Active Non-Lubricated (TRUSTEX-KEVIN NON-LUB CONDOMS) Nicole famotidine 20 mg Take 1 tablet by 30 tablet 0 02/19/2019 Active tabletIndications: mouth 2 (two) Pain of upper abdomen times daily. omeprazole 40 mg Take 1 capsule by 30 capsule 5 03/03/2019 Active capsuleIndications: mouth daily. Abdominal pain, epigastric, History of Helicobacter pylori infection documented as of this encounter (statuses as [...] examination 10/17/2014 11/23/2014 Overview: ICD10 Diagnosis Term Lead Quality Technician Utility Screening for STD (sexually transmitted disease) 10/17/2014 11/23/2014 General counseling and advice for contraceptive management 10/17/20142015 Overview: ICD10 Diagnosis Term Lead Quality Technician Utility Other general counseling and advice for contraceptive 05/09/2013 07/20/2013 management History of section, classical 04/04/2013 10/17/2014 Immune to rubella 12/08/2012 04/21/2013 Maternal varicella, non-immune 11/17/2012 07/20/2013 Overview: Give pp Rash and other nonspecific skin eruption 10/15/2012 04/21/2013 Overview: Resolved. Supervision of other high-risk 09/16/2012 07/20/2013 Overview: ICD10 Diagnosis Term Lead Quality Technician Utility Screening examination for pulmonary tuberculosis 09/16/2012 [...] delivered 10/03/2008 09/16/2012 Overview: ICD10 Diagnosis Term Lead Quality Technician Utility Threatened premature labor, antepartum(644.03) 09/27/2008 10/03/2008 Early onset of delivery with baby delivered 09/07/2007 09/16/2012 Overview: ICD10 Diagnosis Term Lead Quality Technician Utility Other infants, 500-749 grams(765.12) 09/07/2007 09/16/2012 Insufficient care 09/07/2007 09/16/2012 Breech presentation delivered 09/07/2007 09/16/2012 Overview: ICD10 Diagnosis Term Lead Quality Technician Utility anemia 09/07/2007 09/16/2012 Overview: ICD10 Diagnosis Term Lead Quality Technician Utility Routine or child health check 03/19/2007 09/16/2012 Overview: 10yr, 11yr, 12yr, 13yr, 14yr, 15yr Acute pharyngitis 03/19/2007 09/16/2012 Overview: viral Abdominal pain 03/19/2007 09/16/2012 Overview: ICD10 Diagnosis Term Lead Quality Technician Utility Other and unspecified diseases of upper [...] of this encounter Last Filed Vital Signs Not on filedocumented in this encounter Plan of Treatment Date Type Specialty Care Team Description 03/31/2019 Office Visit Gastroenterology Lily Winters PA [address] [place] [address] [phone] Health Maintenance Due Date Last Done Comments [...] Results Not on filedocumented in this encounter Advance Directives Type Date Recorded Patient Primary Care Physician Explanation Advance Directives and Living Will Power of Inspector Glass Or Mirror
--- OUTSIDE RECORDS SUMMARY | 2019-09-30 15:05 | XMS REPORT | Summary of Care ---
:1990 Author Organization [facility] Address [address] [place] [id number] Care Team Providers Name Role Phone Lisbet Chatterjee Primary Care Provider Reason for Referral (Routine) Status Reason Specialty Diagnoses / Referred By Referred To Procedures Contact Contact New Request Maternal Diagnoses H/O incompetent cervix, currently History of section, classical History of delivery, currently Lisbet Chatterjee Medicine Procedures CONSULT/REFERRAL MATERNAL MEDICINE FACULTY/FELLOW Preferred location: KALEY Lott [address] [facility] [place] [address] Reason for Visit Reason Comments Initial Visit Encounter Details Date Type Department Care Team Description 09/06/2019 Initial [facility]- Lisbet Chatterjee Supervision of high risk in first trimester (Primary Dx); Visit KALEY Lott H/O incompetent cervix, currently ; [address] History of section, classical; [place], [place] History of delivery, currently ; [id number] [place], [place] Mult[place]; [phone] [id number] Tubal ligation status; [phone] Herpes simplex vulvovaginitis; [phone] BMI 23.0-23.9, adult (Fax) Allergies Active Allergy Reactions Severity Noted Date Comments Nitrofurantoin Monohyd/M-Cryst Rash 10/30/2014 Penicillins Rash 12/01/2018 documented as of this encounter (statuses as of 09/06/2019) Medications Medication Sig Dispensed Refills Start Date End Date Status Condoms Latex Use as 12 Each 0 10/31/2014 Discontinued Non-Lubricated directed 0 (TRUSTEX-KEVIN NON-LUB CONDOMS) Nicole omeprazole 40 mg Take 1 capsule 30 capsule 5 03/03/2019 Discontinued capsuleIndications: by mouth 0 Abdominal pain, daily. epigastric, History of Helicobacter pylori infection amitriptyline 10 mg Take 1 tablet 30 tablet 5 03/31/2019 Discontinued tabletIndications: by mouth at 0 Abdominal pain, bedtime. epigastric, Functional dyspepsia acyclovir 400 mg Take 1 tablet 60 tablet 11 06/13/2019 Discontinued tabletIndications: by mouth 2 0 Herpes simplex (two) times vulvovaginitis daily. documented as of this encounter (statuses as of 09/06/2019) Active Problems Problem Noted Date Supervision of high risk in first trimester 09/06/2019 H/O incompetent cervix, currently 09/06/2019 History of section, classical 09/06/2019 History of delivery, currently 09/06/2019 Multiparity 09/06/2019 BMI 23.0-23.9, adult 09/06/2019 Tubal ligation status 09/06/2019 Genital herpes 09/16/2012 Estimated Date of Delivery Comments Yes 05/03/2020 Based on last menstrual period of 07/28/2019 documented as of this encounter (statuses as of 09/06/2019) Resolved Problems Problem Noted Date Resolved Date Family planning counseling 05/01/2016 09/06/2019 Well woman exam without gynecological exam 05/01/2016 09/06/2019 Screen for STD (sexually transmitted disease) 05/01/2016 09/06/2019 Mixed hyperlipidemia 05/01/2016 09/06/2019 Urinary tract infection, site not specified 10/17/2014 05/01/2016 Encounter for routine gynecological examination 10/17/2014 11/23/2014 Overview: ICD10 Diagnosis Term [employer] Screening for STD (sexually transmitted disease) 10/17/2014 11/23/2014 General counseling and advice for contraceptive management 10/17/20142015 Overview: ICD10 Diagnosis Term [employer] Other general counseling and advice for contraceptive 05/09/2013 07/20/2013 management History of section, classical 04/04/2013 10/17/2014 Immune to rubella 12/08/2012 04/21/2013 Maternal varicella, non-immune 11/17/2012 07/20/2013 Overview: Give pp Rash and other nonspecific skin eruption 10/15/2012 04/21/2013 Overview: Resolved. Supervision of other high-risk 09/16/2012 07/20/2013 Overview: ICD10 Diagnosis Term [employer] Screening examination for pulmonary tuberculosis 09/16/2012 [...] delivered 10/03/2008 09/16/2012 Overview: ICD10 Diagnosis Term [employer] Threatened premature labor, antepartum(644.03) 09/27/2008 10/03/2008 Early onset of delivery with baby delivered 09/07/2007 09/16/2012 Overview: ICD10 Diagnosis Term [employer] Other infants, 500-749 grams(765.12) 09/07/2007 09/16/2012 Insufficient care 09/07/2007 09/16/2012 Breech presentation delivered 09/07/2007 09/16/2012 Overview: ICD10 Diagnosis Term [employer] anemia 09/07/2007 09/16/2012 Overview: ICD10 Diagnosis Term [employer] Routine infant or child health check 03/19/2007 09/16/2012 Overview: 10yr, 11yr, 12yr, 13yr, 14yr, 15yr Acute pharyngitis 03/19/2007 09/16/2012 Overview: viral Abdominal pain 03/19/2007 09/16/2012 Overview: ICD10 Diagnosis Term [employer] Other and unspecified diseases of upper respiratory tract 03/19/20072012 Contusion of foot 03/19/2007 09/16/2012 Overview: right documented as of this encounter (statuses as of 09/06/2019) Immunizations Name Administration Dates Next Due HEPATITIS A 02/05/2007 HPV 02/05/2007 Influenza Virus Vaccine 03/24/2013 Meningococcal Vaccine 02/05/2007 Tdap 02/17/2013, 02/05/2007 Varicella (varivax)(chicken pox) 04/24/2013 documented as of this encounter Social History Tobacco Use Types Packs/Day Years Used Date Never Smoker Smokeless Tobacco: Never Used Alcohol Use Drinks/Week oz/Week Comments No Estimated Date of Delivery Comments Yes 05/03/2020 Based on last menstrual period of 07/28/2019 Sex Assigned at Date Recorded Not on file Job Start Date Occupation Industry Not on file Not on file Not on file Travel History Travel Start Travel End No recent travel history available. 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 Breast self-awareness is knowing how your breasts normally look and feel. Your breasts change as yougo through different stages of your life. So its important to learn what is normal for your breasts. Knowing about your breasts helps you spot any changes in them right away. Tell your healthcare provider about any changes. Why is breast self-awareness important? Many experts now say that women should focus on breast self-awareness instead of doing a breast self-examination (BSE). These experts include the [place] [employer] and the [place] [employer]. Some experts even advise not teaching women to do a BSE. Thats because research hasnt shown a clear benefit to doing BSEs. Breast self-awareness is different than a BSE. It isnt about following a certain method and schedule. Its about knowing what's normal for your breasts. That way you can spot even small changes right away. If you see any changes, tell your healthcare provider. Changes to look for Call your healthcare provider if you find any changes in your breasts that worry you. These changes may be: A lump Nipple discharge other than breastmilk, especially if it's bloody Swelling A change in size or shape Skin changes, such as redness, thickening, or dimpling of the skin Swollen lymph nodes in the armpit Nipple problems, such as pain or redness If you find a lump Call your provider if you find lumpiness in one breast. Also call if you feel something different inthe tissue or feel a definite lump. Sometimes lumpiness may be due to menstrual changes. But there may be reason for concern. Your provider may want to see you right away if you have: Nipple discharge that is bloody Skin changes on your breast, such as dimpling or puckering Its okay to be upset if you find a lump. Be sure to call your provider right away. Remember that most breast lumps are benign. This means they are not cancer. [employer] last reviewed this educational content on 02/10/201719992533-6233 [employer]. [address] [place] [address]. All rights reserved. This information is not intended as a substitute for professional medical care. Always follow your healthcare professional's instructions. Clinical Breast Exam Many health organizations recommend a yearly clinical breast exam. This exam may be done by a consulting solution manager, family healthcare provider, nurse practitioner, nurse milk delivery driver, or specially trained nurse. Yearly breast exams help tomake surethat breast conditions are found early. Your healthcare providers role A healthcare professional knows the tests and follow-up care needed if a problem is found. Your clinical exam is also a great time to ask questions about breast self-exams. You can find out if yourechecking your breasts in the best way. Or you may want to ask how , breast implants, or breast reduction surgery affect the way you should check your breasts. Diagnostic tests If a clinical exam reveals a breast change, you may have other tests to find out more. These tests may include: Mammography. A low-dose X-ray of your breast tissue. Ultrasound. An imaging test that uses sound waves to create images of your breast. Biopsy. A small amount of breast tissue is removed by needle or by a cut ( incision). The tissue is then checked under a microscope. Guidelines for having clinical breast exams The [place] [employer] recommends that starting at age 29, you should have a clinical breast exam every 1 to 3 years. After age 40, have a clinical breast exam each year. If youre at higher risk for breast cancer, you may need exams more often. Risk factors for breast cancer may include: Being over 50 or postmenopausal Having a family history of breast cancer Having the BRCA1 or BRCA2 gene mutation or certain other gene mutations Having more menstrual periods due to starting menstruation early(before age 12) or having a late menopause (after age 55) Having no pregnancies Having a first after age 30 Being obese Having a history of radiation treatment to your chest area Exposure to SAJI during your mother's Not being active Drinking too much alcohol Having dense breast tissue Taking hormone therapy after menopause Other health organizations have different recommendations. Talk with your healthcare provider about what is best for you. [employer] kurtis reviewed this educational content on 02/10/201719990706-0241 [employer]. [address] [place] [address], [place] [address]. All rights reserved. This information is not intended as a substitute for professional medical care. Always follow your healthcare professional's instructions. Prevention Guidelines,Women Ages 18 to 39 Screening tests and vaccines are an important part of managing your health. A screening test is doneto find possible disorders or diseases in people who don' t have any symptoms. The goal is to find a disease early so lifestyle changes can be made and you can be watched more closely to reduce the riskof disease, or to detect it early enough to treat it most effectively. Screening tests are not considered diagnostic, but are used to determine if more testing is needed. Health counseling is essential, too. Below are guidelines for these, for women ages 18 to 39. Talk with your healthcare provider tomake sure youre up-to- date on what you need. Screening Who needs it How often Alcohol misuse All women in this age group At routine exams Blood pressure All women in this age group Yearly checkup if your blood pressure is normal Normal blood pressure is less than 120/80 mm Hg If your blood pressure reading is higher than normal, follow the advice of your healthcare provider Breast cancer All women in this age group should talk with their healthcare providers about the needfor clinical breast exams (CBE)1 Clinical breast exam every 3 years1 Cervical cancer Women ages 21 and older Women between ages 21 and 29 should have a Pap test every 3 years; women between ages 30 and 65 are advised to have a Pap test plus an HPV test every 5 years Chlamydia Sexually active women ages 25 and younger, and women at increased risk for infection (suchas having multiple sex partners) Every year if you're at risk or have symptoms Depression All women in this age group At routine exams Type 2 diabetes, prediabetes All women with no symptoms who are overweight or obese and have 1 or more other risk factors for diabetes At least every 3 years. Also, testing for diabetes during after the 24th week. Type 2 diabetes, prediabetes All women diagnosed with gestational diabetes Lifelong testing every 3 years Type 2 diabetes All women with prediabetes Every year Gonorrhea Sexually active women at increased risk for infection At routine exams Hepatitis C Anyone at increased risk At routine exams HIV All women should be tested at least once for HIV between the ages of 13 and 64 At routine exams.Those with risk factors for HIV should be tested at least annually. Obesity All women in this age group At routine exams Syphilis Women at increased risk for infection should talk with their healthcare provider At routineexams Tuberculosis Women at increased risk for infection should talk with their healthcare provider Ask your healthcare provider Vision All women in this age group At least 1 complete exam in your 20s, and 2 in your 30s Vaccine2 Who needs it How often Chickenpox (varicella) All women in this age group who have no record of this infection or vaccine 2doses; the second dose should be given 4 to 8 weeks after the first dose Hepatitis A Women at increased risk for infection should talk with their healthcare provider 2 dosesgiven at least 6 months apart Hepatitis B Women at increased risk for infection should talk with their healthcare provider 3 dosesover 6 months; second dose should be given 1 month after the first dose; the third dose should be given at least 2 months after the second dose and at least 4 months after the first dose Haemophilus influenzaeType B (HIB) Women at increased risk for infection should talk with their healthcare provider 1 to 3 doses Human papillomavirus (HPV) All women in this age group up to age 26 3 doses; the second dose should be given 1 to 2 months after the first dose and the third dose given 6 months after the first dose Influenza (flu) All women in this age group Once a year Measles, mumps, rubella (MMR) All women in this age group who have no record of these infections or vaccines 1 or 2 doses Meningococcal Women at increased risk for infection should talk with their healthcare provider 1 or more doses Pneumococcal conjugate vaccine (PCV13)and pneumococcal polysaccharide vaccine(PPSV23) Women at increased risk for infection should talk with their healthcare provider PCV13: 1 dose ages 19 to 65 (protects against 13 types of pneumococcal bacteria) PPSV23: 1 to2 doses through age 64, or 1 dose at 65 or older (protects against 23 types of pneumococcal bacteria) Tetanus/diphtheria/pertussis (Td/Tdap) booster All women in this age group Td every 10 years, or a one-time dose of Tdap instead of a Td booster after age 18 , then Td every 10 years Counseling Who needs it How often BRCA gene mutation testing for breast and ovarian cancer susceptibility Women with increased risk for having gene mutation When your risk is known Breast cancer and chemoprevention Women at high risk for breast cancer When your risk is known Diet and exercise Women who are overweight or obese When diagnosed, and then at routine exams Domestic violence Women at the age in which they are able to have children At routine exams Sexually transmitted infection prevention Women who are sexually active At routine exams Skin cancer Prevention of skin cancer in fair-skinned adults At routine exams Use of tobacco and the health effects it can cause All women in this age group Every visit 1 According to the ACS, women ages 20 to 39 years should have a clinical breast exam (CBE) as part of their routine health exam every 3 years. Breast self- exams are an option for women starting in their 20s.But the USPSTF does not recommend CBE. [employer] last reviewed this educational content on 04/12/201719998886-1993 [employer]. [address] [place] [address], [place] [address]. All rights reserved. This information is not intended as a substitute for professional medical care. Always follow your healthcare professional's instructions. Understanding STDs When it comes to sex, nothing is risk-free. Any sexual contact with the penis, vagina, anus, or mouth can spread a sexually transmitted disease (STD). The only sure way to prevent STDs is abstinence (not having sex). But there are ways to make sex safer. Use a latex condom each time you have sex. And choose your partner wisely. Use condoms for safer sex If you have sex, latex condoms provide the best protection against STDs. Latex condoms stop the exchange of body fluids that carry certain STDs. They also limit contact with affected skin. Be aware though, a condom doesnt cover all skin. So, affected skin that is not covered can still transfer disease. But you re safer with a condom than without one. Use a condom even if you use other control. While control methods like the pill or IUD help prevent , they do not protect against STDs. Choose the right condom Condoms made of latex prevent disease best. If youre allergic to latex, use polyurethane condoms instead. Male condoms fit over the penis. Female condoms line the vagina. Before buying a condom, read the label to be sure it prevents disease. Some novelty condoms dont. The right lubricant helps Buy lubricated condoms or use lubricant. This provides greater comfort and reduces the risk of condom breakage. Use only water-based lubricants. Dont use oil, lotion, or petroleum jelly. They can weaken the condom, causing breakage. Also, you may want to choose lubricants without nonoxynol-9. Its now known that this spermicide does not prevent disease and may cause irritation. Use condoms correctly For condoms to work, they must be used the right way. Keep these tips in mind: Use a new latex condom each time you have sex. Slip the condom on the penis before any contact ismade. When ready to withdraw, hold the rim of the condom as the penis pulls out. This prevents the condom from slipping off. Check the expiration date before using a condom. Dont store condoms in places that can get hot, such as a car or a wallet that is carried in a back pocket. Get to know your partner Safer sex is a process. It involves getting to know your partner and making informed choices. Ask each other how many partners you have had in the past, and how many you have now. Find out if either ofyou has an STD. If you decide to have sex, use a condom each time. Dont stop using condoms unlessyoure sure neither of you has other partners and youve both been tested to confirm you donthave STDs. Then stay free of disease by having sex only with each other (monogamy). Keep your cool Dont let alcohol or drugs cloud your judgment. They could lead you to have sex with someone you wouldnt have chosen if you were sober. Or, you might forget to use a condom. If you do plan to havesex, keep a latex condom with you. Dont wait until youre in the heat of passion to try to findone. Consider abstinence The only way to be sure you wont get an STD is to abstain from sex. Abstinence is a choice that many people make at some point in their lives. Maybe you want to wait until you are sure youre ready before you have sex. Maybe youd like a break from the responsibilities of sex for a while. Or maybe you just want to know your partner better before taking the next step. Abstinence is a choice youcan make now to protect your future. [employer] last reviewed this educational content on 06/12/201619991804-8564 [employer]. [address] [place] [address]. All rights reserved. This information is not intended as a substitute for professional medical care. Always follow your healthcare professional's instructions. Understanding HIV and AIDS It's important to know how HIV can get into your body and what happens once it s there. Then youll be better prepared to protect yourself or others against this virus. A person with HIV can look and feel perfectly healthy. But that person can give HIV to others as soon as he or she is infected with the virus. Having unsafe or unprotected sex or sharing needles puts you at risk for HIV. Talk with your healthcare provider about ways to protect yourself or a loved one from getting HIV. How HIV infection progresses After HIV enters the body, it attacks the immune system in the stages below. A person with HIV can infect others once the virus gets into the blood. HIV with no symptoms. A person with HIV may have no symptoms for years. The only sign of infection may be a positive blood test for HIV 2 weeks to 3 months or later after HIV enters the body. HIV with symptoms. Some people develop an illness similar to mono ( mononucleosis) 2 to 4 weeks after the virus enters the body. This is called acute retroviral syndrome. Symptoms may include swollen lymph glands, chills, fever, night sweats, weakness, weight loss, skin rashes, mouth ulcers, or sore throat. Symptoms may be mild or the person can feel quite sick. Even without treatment the symptoms almost always go away in a few days or up to 2 to 3 weeks. Then the person has no symptoms, often for years. But over time the immune system starts to get weaker and symptoms start appearing. People at this stage may have a yeast infection in the mouth (oral thrush), shingles, skin problems, pneumonia, diarrhea that keeps coming back, or weight loss. AIDS. AIDS is the most advanced stage of HIV infection, when the immune system is severely weakened.Certain rare diseases and cancers that normally would not occur, now can occur because the body can no longer fight them well enough. It is often these diseases that cause in people with AIDS. HIV may also directly attack the brain and nervous system. This causes seizures and loss of memory and body movement. It also affects many other parts of the body. This leads to problems such as anemia, low white blood cell count, diarrhea, belly pain, skin problems, and many others. How HIV enters the body HIV is carried in semen, vaginal fluid, blood, and breastmilk. During sex, HIV can enter the body. It gets in through the fragile tissue and linings, sores, or cuts in or around the vagina, penis, anus, and mouth. During drug use, tattooing, or body piercing, the virus can enter the blood through an infected needle. A mother who has HIV can infect her child during , childbirth, and . [employer] last reviewed this educational content on 12/11/201819990171-0892 [employer]. [address] [place] [address]. All rights reserved. This information is not intended as a substitute for professional medical care. Always follow your healthcare professional's instructions. Understanding USDA MyPlate The USDA (U.S. Department of Agriculture) has guidelines to help you make healthy food choices. These are called MyPlate. MyPlate shows the food groups that make up healthy meals using the image of a place setting. Before you eat, think about the healthiest choices for what to put onto your plate or into your cup or bowl. To learn more about building a healthy plate, visit www.choosemyplate.gov. The food groups Fruits. Any fruit or 100% fruit juice counts as part of the Fruit Group. Fruits may be fresh, canned, frozen, or dried, and may be whole, cut-up, or pureed. Make half your plate fruits and vegetables. Vegetables. Any vegetable or 100% vegetable juice counts as a member of the Vegetable Group. Vegetables may be fresh, frozen, canned, or dried. They can be served raw or cooked and may be whole, cut-up, or mashed. Make half your plate fruits and vegetables. Grains. All foods made from grains are part of the Grains Group. These include wheat, rice, oats,cornmeal, and barley such as bread, pasta, oatmeal, cereal, tortillas, and grits. Grains should be no more than a quarter of your plate. At least half of your grains should be whole grains. Protein. This group includes meat, poultry, seafood, beans and peas, eggs, processed soy products(like tofu), nuts (including nut butters), and seeds. Make protein choices no more than a quarter ofyour plate. Meat and poultry choices should be lean or low fat. Dairy. All fluid milk products and foods made from milk that contain calcium , like yogurt and cheese, are part of the Dairy Group. (Foods that have little calcium, such as cream, butter, and cream cheese, are not part of the group.) Most dairy choices should be low-fat or fat-free. Oils. These are fats that are liquid at room temperature. They include canola , corn, olive, soybean, and sunflower oil. Foods that are mainly oil include mayonnaise, certain salad dressings, and soft margarines. You should have only 5 to 7 teaspoons of oils a day. You probably already get this muchfrom the food you eat. [employer] last reviewed this educational content on 02/10/201719996865-6861 [employer]. [address] [place] [address], [place] [address]. All rights reserved. This information is not intended as a substitute for professional medical care. Always follow your healthcare professional's instructions. RT TRAFFIC DEPARTMENT MANAGER documented in this encounter Progress Notes Lisbet Chatterjee FNP - 09/06/2019 9:00 AM CST Chief complaint: Chief Complaint Patient presents with Initial Visit CC: Initial Visit Kellie Donald is a 29 year old, , /White female. Patient's last menstrual period was 07/28/2019. She is 5w5d with a suspected intrauterine . Her Estimated Date of Delivery: 05/03/20. She is being seen today for her first obstetrical visit. She has no complaints today. Denies current physical, emotional or sexual abuse. Patient denies recent foreign travel. Pt with complicated obstetric history. First with incompetent cervix and delivery at 22 weeks with demise. 2nd , patient reports had plans to have cerclage placed, but then started peri and bleeding and had an emergent delivery with classical incision at 27 weeks. 3rd patient did not have cerclage, but did have weekly 17P injections starting at 16 weeks. Around 32 weeks she was admitted for contractions, receive steroids, and was discharged. Had repeat section with classical incision at 35 weeks d/t labor. OB History T0 L2 SAB0 TAB0 Ectopic0 Multiple0 Live Births3 Name of Baby 1: Not recorded Date: 09/06/07 GA: 22w0d Delivery: Vaginal, Spontaneous Apgar1: Not recorded Apgar5: Not recorded Living: Name of Baby 2: Not recorded Date: 10/03/08 GA: 27w0d Delivery: , Classical Apgar1: Not recorded Apgar5: Not recorded Living: Living Name of Baby 3: Not recorded Date: 04/22/13 GA: 35w5d Delivery: Section Apgar1: Not recorded Apgar5: Not recorded Living: Living Name of Baby 4: Not recorded Date: Not recorded GA: Not recorded Delivery: Not recorded Apgar1: Not recorded Apgar5: Not recorded Living: Not recorded Histories OB History Para Term AB Living 4 3 3 0 2 SAB TAB Ectopic Multiple Live Births 0 3 # Outcome Date GA Lbr Curly/2nd Weight Sex Delivery Anes PTL Lv 4 Current 3 04/22/13 35w5d 5 lb 9 oz (2.523 kg) F SEC EPIDURAL JIM 2 10/03/08 27w0d 2 lb 2 oz (0.964 kg) M CS-Classical GENERAL Y JIM Comments: CLASSICAL c/section for bleeding 1 09/06/07 22w0d 1 lb 6 oz (0.624 kg) M Vag-Spont NONE Y DEC Comments: lived 2hrs and . 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 Family History Problem Relation Age of Onset Breast Cancer Mother Diabetes Father Hypertension Father No Significant Medical Problems Brother Arthritis NoFHx Asthma NoFHx defects NoFHx Colon Cancer NoFHx Uterine Cancer NoFHx Ovarian Cancer NoFHx Cancer NoFHx Depression NoFHx Genetic NoFHx Heart NoFHx High cholesterol NoFHx Mental retardation NoFHx Neurological NoFHx Osteoporosis NoFHx Other - see comments NoFHx Psychiatry NoFHx Family Status Relation Name Status Mo Alive Fa Alive Bro Alive MGMo MGFa Alive PGMo Alive PGFa Alive NoFHx (Not Specified) Past Surgical History: Procedure Laterality Date DELIVERY ONLY 04/23/2013 SECTION 10/03/2008 [facility] SECTION 04/22/2013 Surgeon: Preeti Guerrero MD; Location: [facility] Social History Socioeconomic History Marital status: Spouse name: Not on file Number of children: 1 Years of education: 12 Highest education level: Not on file Occupational History Occupation: none Social Needs Financial resource strain: Not on file Food insecurity: Worry: Not on file Inability: Not on file Transportation needs: Medical: Not on file Non-medical: Not on file Tobacco Use Smoking status: Never Smoker Smokeless tobacco: Never Used Substance and Sexual Activity Alcohol use: No Drug use: No Sexual activity: Yes Partners: Male control/protection: None Comment: last sex 08/17/19 Lifestyle Physical activity: Days per week: Not on file Minutes per session: Not on file Stress: Not on file Relationships Social connections: Talks on phone: Not on file Gets together: Not on file Attends zoroastrian service: Not on file Active member of club or organization: Not on file Attends meetings of clubs or organizations: Not on file Relationship status: Not on file Intimate partner violence: Fear of current or ex partner: Not on file Emotionally abused: Not on file Physically abused: Not on file Forced sexual activity: Not on file Other Topics Concern Service Not Asked Blood Transfusions No Caffeine Concern Not Asked Occupational Exposure Not Asked Hobby Hazards Not Asked Sleep Concern Not Asked Stress Concern Not Asked Weight Concern Not Asked Special Diet Not Asked Back Care Not Asked Exercise Not Asked Bike Helmet Not Asked Seat Belt Not Asked Self-Exams Not Asked Social History Narrative Mosque is Sabianism No domestic violence at home Lives with children. Safe environment. Social History Substance and Sexual Activity Sexual Activity Yes Partners: Male control/protection: None Comment: last sex 08/17/19 Genetic Screen Autism / Mental Retardation: No Zarina Disease: No Congenital Heart Defect: No Cystic Fibrosis: No Down Syndrome: No Familial Dysautonomia: No Hemophilia or other Blood Disorders: No Sutton Chorea: No Maternal Metabolic Disorder--specify (eg. Type 1 Diabetes, PKU): No Muscular Dystrophy: No Neural Tube Defect: No Recurrent Loss or a Stillbirth: No Sickle Cell Disease or Trait: No Renan Sachs: No Teratological Substances (specify type & strength/dose) since LMP: No Thalassemia: No Other Inherited Genetic or Chromosomal Disorder (specify): No No Significant History of Genetic Disorders: No Significant History of Genetic Disorders Labs I have reviewed the patient's labs. and Labs are pending. Radiology Radiology pending. Allergies Kellie is allergic to macrobid [nitrofurantoin monohyd/m-cryst] and pcn [ penicillins]. Medications Kellie currently has no medications in their medication list. Review of Systems Constitutional: Negative. Negative for appetite change, fatigue and fever. HENT: Negative. Eyes: Negative. Negative for visual disturbance. Respiratory: Negative. Breasts: Negative. Cardiovascular: Negative. Negative for palpitations and leg swelling. Gastrointestinal: Negative. Negative for abdominal pain, constipation, diarrhea , nausea and vomiting. Genitourinary: Negative. Negative for dysuria, vaginal bleeding, vaginal discharge and pelvic pain. Musculoskeletal: Negative. Skin: Negative. Negative for rash. Neurological: Negative. Negative for dizziness, light-headedness and headaches. Psychiatric/Behavioral: Negative. Endocrine: Endocrine negative BP 106/80 (BP Location: Right arm, Patient Position: Sitting, BP CUFF SIZE: Adult Medium) | Pulse 71 | Temp 36.8 C (98.3 F) (Oral) | Resp 16 | Ht 5 ' 2" (1.575 m) | Wt 128 lb 4 oz (58.2 kg) | LMP 07/28/2019 | BMI 23.46 kg/m Pregravid BMI: Could not be calculated Physical Exam Vitals reviewed. Constitutional: She is oriented to person, place, and time. She appears well- developed and well-nourished. Her body habitus is normal. See flowsheet Neck: No thyroid nodules and no thyromegaly palpated. Cardiovascular: Regular rate and rhythm. No murmur auscultated. No peripheral edema present. Pulmonary/Chest: Breath sounds clear to auscultation. Normal inspiratory effort. Abdominal: Abdomen is soft. No mass palpated. No tenderness present. There is no hepatosplenomegaly. Neuro/Psychiatric: She has a normal mood and affect. She is oriented to person, place, and time. Skin: Skin normal. No lesion and no rash present. Vertical abdominal scar from pubic bone to umbilicus Breast: Right breast exhibits no mass, no nipple discharge and no tenderness. Left breast exhibits no mass, no nipple discharge and no tenderness. Normal left breast and normal right breast External genitalia: Normal external genitalia appropriate for age. No labial lesion. Bladder: No tenderness. Normal bladder Vagina:Normal vagina. No lesion inspected. No abnormal vaginal discharge found. Cervix: Normal cervix. No lesion. No tenderness and no discharge present. Uterus: Uterus is normal size, normal position and non-tender. Normal uterus Adnexa: Right adnexa without tenderness. Left adnexa without tenderness. Normal left adnexa and normal right adnexa PHYSICAL: General Exam: HEENT: Normal Thyroid: Normal Lymph Node: Normal Neurological: Normal Heart: Normal Lungs: Normal Breasts: Normal Abdomen: Normal Skin: Normal Extremities: Normal Pelvic Exam: Vulva: Normal Vagina: Normal Cervix: Normal Membrane status: Intact Uterus: 6 Weeks Adnexa: Normal Rectum: Normal Spines: Average Subpubic Arch: Normal Assessment/Plan 1. Supervision of high risk in first trimester 5w5d TWG discussed Discussed use of Deet Repellent Initiate Vitamins Increase Fluid Intake. Minimum of 8 water bottles daily. - GLUCOSE 1 HOUR POST PRANDIAL - POCT URINALYSIS W/O SPECIFIC GRAVITY - POCT TEST - POCT URINALYSIS W/O SPECIFIC GRAVITY; Standing - CBC WITH DIFF - GC & CHLAMYDIA AMPLIFIED ASSAY - HEPATITIS B SURFACE ANTIGEN - HIV 1/2 AG-AB WITH REFLEX - WORKUP, BLOOD BANK - RUBELLA SCREEN (MEET) IGG - GALV ONLY - SYPHILIS IGG/IGM - URINE CULTURE - VZV ANTIBODY SCREEN - CBC WITH DIFFERENTIAL 2. H/O incompetent cervix, currently Referral to [facility] for consult - CONSULT/REFERRAL MATERNAL MEDICINE FACULTY/FELLOW Preferred location: [place] 3. History of section, classical Referral to [facility] for consult - CONSULT/REFERRAL MATERNAL MEDICINE FACULTY/FELLOW Preferred location: [place] 4. History of delivery, currently Referral to [facility] for consult - CONSULT/REFERRAL MATERNAL MEDICINE FACULTY/FELLOW Preferred location: [place] 5. Multiparity Considering BTL 6. Tubal ligation status Sign consents at 28 weeks 7. Herpes simplex vulvovaginitis Not currently on daily suppression, stopped in June. She reports she does get >5 outbreaks per year, last outbreak in June. 8. BMI 23.0-23.9, adult Return to clinic in 2 weeks. Discussed treatment options. Reviewed patient instructions and provided printed copy. at 5w5d This visit did not involve counseling and coordination that comprised more than 50% of the visit time. Hernan Merino RN - 09/06/2019 9:00 AM CSTPatient is 29 year old female here for current . Patient is . 1) Previous delivery methods x2 2) Patient is not experiencing cramping 3) Patient is not experiencing bleeding. 4) LMP 07/28/2019 5) Last Pap was: 06/07/2019 Results: Negative 6) Have you had a flu vaccine this season? No, patient declines 7) PPD candidate? no 8) Patient denies any complaints 9) Patient denies history of physical, emotional, or sexual abuse. Patient states she currently feels safe at home. New ob packet given and discussed with patient. HERNAN RICHARD RN 09/06/2019 9:45 AM documented in this encounter Plan of Treatment Date Type Specialty Care Team Description 09/15/2019 Routine Visit OB Satellites Risk, Jrx-Obomj-Kq/High Name Type Priority Associated Diagnoses Order Schedule GLUCOSE 1 HOUR POST LAB Routine Supervision of high Ordered: 09/06/2019 PRANDIAL risk in first trimester POCT URINALYSIS W/O LAB Routine Supervision of high 20 Occurrences starting SPECIFIC GRAVITY risk in first 09/06/2019 until trimester 09/06/2020 CBC WITH DIFF LAB Routine Supervision of high Ordered: 09/06/2019 risk in first trimester GC & CHLAMYDIA AMPLIFIED LAB Routine Supervision of high Ordered: 2019 ASSAY risk in first trimester HEPATITIS B SURFACE LAB Routine Supervision of high Ordered: 09/06/2019 ANTIGEN risk in first trimester HIV 1/2 AG-AB WITH REFLEX LAB Routine Supervision of high Ordered: 2019 risk in first trimester WORKUP, BLOOD LAB Routine Supervision of high Ordered: 09/06/2019 BANK risk in first trimester RUBELLA SCREEN (MEET) LAB Routine Supervision of high Ordered: 09/06/2019 IGG risk in first trimester GALV ONLY - SYPHILIS LAB Routine Supervision of high Ordered: 09/06/2019 IGG/IGM risk in first trimester URINE CULTURE LAB Routine Supervision of high Ordered: 09/06/2019 risk in first trimester VZV ANTIBODY SCREEN LAB Routine Supervision of high Ordered: 09/06/2019 risk in first trimester CBC WITH DIFFERENTIAL LAB Routine Supervision of high Ordered: 09/06/2019 risk in first trimester Health Maintenance Due Date Last Done Comments INFLUENZA VACCINE (#1) 2020 03/24/2013 Postponed from 03/13/2019 (Refused) PAP SMEAR 06/07/2022 06/07/2019, 10/17/2014, 07/20/2013, Additional history exists DTaP,Tdap,and Td Vaccines 02/17/2023 02/17/2013, 02/05/2007 (3 - Td) VARICELLA VACCINES Discontinued 04/24/2013 PNEUMOCOCCAL 0-64 YEARS Aged Out No longer eligible COMBINED SERIES based on patient's age to complete this topic documented as of this encounter Procedures Procedure Name Priority Date/Time Associated Diagnosis Comments POCT URINALYSIS W/O Routine 09/06/2019 9:34 Supervision of high Results for this SPECIFIC GRAVITY AM EXPORT TRAFFIC DEPARTMENT MANAGER risk in procedure are in first trimester the results section. POCT TEST Routine 09/06/2019 9:34 Supervision of high Results for this AM EXPORT TRAFFIC DEPARTMENT MANAGER risk in procedure are in first trimester the results section. documented in this encounter Results POCT TEST (09/06/2019 9:34 AM EXPORT TRAFFIC DEPARTMENT MANAGER) POCT PREG Positive On board controls acceptable Yes with C Line POCT PREG LOT # POCT PREG TEST DATE Specimen Urine - URINE, CLEAN CATCH POCT URINALYSIS W/O SPECIFIC GRAVITY (09/06/2019 9:34 AM EXPORT TRAFFIC DEPARTMENT MANAGER) POCT PH U 7 5 - 8 mg/dl POCT U LEUK EST neg Negative - Negative POCT U NIT neg Negative - Negative POCT U PROT trace Negative - Negative POCT U GLU neg Negative - Negative POCT U KETONE neg Negative - Negative POCT U BLD neg Negative - Negative Specimen Urine - URINE, CLEAN CATCH documented in this encounter Visit Diagnoses Diagnosis Supervision of high risk in first trimester - Primary Unspecified high-risk H/O incompetent cervix, currently with other poor obstetric history History of section, classical Other postprocedural status History of delivery, currently with history of pre-term labor Multiparity Tubal ligation status Herpes simplex vulvovaginitis BMI 23.0-23.9, adult documented in this encounter Insurance Payer Benefit Plan Subscriber ID Effective Dates Phone Address Type / Group MEDICAID [facility] PENDING 2019-[address] [address] documented as of this encounter Advance Directives Type Date Recorded Patient Freezer Laboratory Technician Explanation Advance Directives and Living Will Power of Machine Operator Assistant
--- OUTSIDE RECORDS SUMMARY | 2019-09-30 15:05 | XMS REPORT | Summary of Care ---
:1990 Author Organization [facility] Address [address] [place] [id number] Care Team Providers Name Role Phone Pcp, Patient Does Not Have A Primary Care Provider Reason for Visit Reason Comments Follow-up 4 week follow up Encounter Details Date Type Department Care Team Description 03/31/2019 Office Visit [facility] Lily Winters Abdominal pain, epigastric (Primary Dx); GASTROENTEROLOGY -ELINA Brink Enteritis; [facility] Functional dyspepsia [address] [place] [address] [phone] Allergies Active Allergy Reactions Severity Noted Date Comments Nitrofurantoin Monohyd/M-Cryst Rash 10/30/2014 Penicillins Rash 12/01/2018 documented as of this encounter (statuses as of 03/31/2019) Medications Medication Sig Dispensed Refills Start Date End Date Status Condoms Latex Use as 12 Each 0 10/31/2014 Active Non-Lubricated directed (TRUSTEX-KEVIN NON-LUB CONDOMS) Nicole omeprazole 40 mg Take 1 capsule 30 capsule 5 03/03/2019 Active capsuleIndications: by mouth Abdominal pain, daily. epigastric, History of Helicobacter pylori infection amitriptyline 10 mg Take 1 tablet 30 tablet 5 03/31/2019 Active tabletIndications: by mouth at Abdominal pain, bedtime. epigastric, Functional dyspepsia famotidine 20 mg Take 1 tablet 30 tablet 0 02/19/2019 Discontinued tabletIndications: by mouth 2 9 Pain of upper (two) times abdomen daily. documented as of this encounter (statuses as of 03/31/2019) Active Problems Problem Noted Date Family planning counseling 05/01/2016 Well woman exam without gynecological exam 05/01/2016 Screen for STD (sexually transmitted disease) 05/01/2016 Mixed hyperlipidemia 05/01/2016 Genital herpes 09/16/2012 documented as of this encounter (statuses as of 03/31/2019) Resolved Problems Problem Noted Date Resolved Date Urinary tract infection, site not specified 10/17/2014 05/01/2016 Encounter for routine gynecological examination 10/17/2014 11/23/2014 Overview: ICD10 Diagnosis Term Manager Intern Utility Screening for STD (sexually transmitted disease) 10/17/2014 11/23/2014 General counseling and advice for contraceptive management 10/17/20142015 Overview: ICD10 Diagnosis Term Manager Intern Utility Other general counseling and advice for contraceptive 05/09/2013 07/20/2013 management History of section, classical 04/04/2013 10/17/2014 Immune to rubella 12/08/2012 04/21/2013 Maternal varicella, non-immune 11/17/2012 07/20/2013 Overview: Give pp Rash and other nonspecific skin eruption 10/15/2012 04/21/2013 Overview: Resolved. Supervision of other high-risk 09/16/2012 07/20/2013 Overview: ICD10 Diagnosis Term Manager Intern Utility Screening examination for pulmonary tuberculosis 09/16/2012 [...] delivered 10/03/2008 09/16/2012 Overview: ICD10 Diagnosis Term Manager Intern Utility Threatened premature labor, antepartum(644.03) 09/27/2008 10/03/2008 Early onset of delivery with baby delivered 09/07/2007 09/16/2012 Overview: ICD10 Diagnosis Term Manager Intern Utility Other infants, 500-749 grams(765.12) 09/07/2007 09/16/2012 Insufficient care 09/07/2007 09/16/2012 Breech presentation delivered 09/07/2007 09/16/2012 Overview: ICD10 Diagnosis Term Manager Intern Utility anemia 09/07/2007 09/16/2012 Overview: ICD10 Diagnosis Term Manager Intern Utility Routine infant or child health check 03/19/2007 09/16/2012 Overview: 10yr, 11yr, 12yr, 13yr, 14yr, 15yr Acute pharyngitis 03/19/2007 09/16/2012 Overview: viral Abdominal pain 03/19/2007 09/16/2012 Overview: ICD10 Diagnosis Term Manager Intern Utility Other and unspecified diseases of upper respiratory tract 03/19/20072012 Contusion of foot 03/19/2007 09/16/2012 Overview: right documented as of this encounter (statuses as of 03/31/2019) Immunizations Name Administration Dates Next Due HEPATITIS [...] Sign Reading Time Taken Comments Blood Pressure 103/68 03/31/2019 8:09 AM CDT Pulse 65 03/31/2019 8:09 AM CDT Temperature 36.9 C (98.4 F) 03/31/2019 8:09 AM CDT Respiratory Rate - - Oxygen Saturation 100% 03/31/2019 8:09 AM CDT Inhaled Oxygen Concentration - - Weight 57.4 kg (126 lb 9.6 oz) 03/31/2019 8:09 AM CDT Height 157.5 cm (5' 2") 03/31/2019 8:09 AM CDT Body Mass Index 23.16 03/31/2019 8:09 AM CDT documented in this encounter Progress Notes Lily Winters PA - 03/31/2019 8:00 AM CDT GI Clinic Note Date: 03/31/2019 08:28 Chief Complaint: Epigastric pain F/U History of Present Illness: Kellie Donald is a 29 year old female presents in the clinic for ER F/U. She reports having intermittent epigastric pain that radiates to lower abdomen about once every 2 weeks for the past 3-4 months. She went to [facility] ER 02/18/[address] scan showing enteritis. She was discharged on Cipro and Pepcid and reports no improvement since then. She still has intermittent epigastric pain but not as back as when she went to the ER. Pain is dull, no associated with eating or having BMs. She had diarrhea associated with the abdominal pain only when she recently went to [facility] ER. BMs are regular, formed, no blood. [...] this may be contributing to her symptoms. Follow-Up 03/31/2019: At last visit, she was recommended to do PPI trial with Omeprazole 40 mg daily which has not alleviated any of her symptoms. She has been taking for the past month without relief. She had stool studiesincluding infectious stool studies, H Pylori, and calprotectin which were all negative. She reports now feeling a bit more constipated. She has 1 hard BM daily, straining, no blood. She does not feel like eating or having BMs affects her pain. She will have epigastric pain for days at a time and this is very bothersome for her. She denies insomnia. Past Medical History: Past Medical History: Diagnosis [...] capsule by mouth daily. 30 capsule 5 Condoms Latex Non-Lubricated (TRUSTEX-KEVIN NON-LUB CONDOMS) Nicole [...] anxiety, nor mood swings Physical Exam: Temp: [36.9 C (98.4 F)] Pulse: [65] BP: (103)/(68) @LASTSAO2(3)@ General: Alert, awake, calm, in no [...] Date Value 02/19/2019 80 Radiology: CT Abd/Pelvis 02/19/2019: - Fluid-filled loops of small bowel with wall thickening, potentially reflecting infectious/inflammatory process such as enteritis. - The appendix has a mildly thickened enhancing wall, likely related to the enteritis process. Acuteappendicitis is not suspected. - A 1.3 cm cyst along the left vaginal wall may represent a Leah duct cyst. Assessment and Plan: 1. Abdominal pain, epigastric (primary encounter diagnosis) 2. Functional dyspepsia 3. Enteritis - She reports having intermittent epigastric pain that radiates to lower abdomen about once every 2 weeks for the past 3-4 months. She went to [facility] ER 02/18/[address] scan showing enteritis and no improvement since then taking Pepcid. Infectious stool studies and H Pylori stool study were negative. She was started on PPI trial with Omeprazole for the past month without relief. Will do TCA trial. - D/C PPI - Start Elavil 10 mg qHS - she can MyChart message me in 4-6 weeks to let me know how she is doing on TCA and can increase up to 25 mg if it is helping but not enough F/U 2-3 months Signed: Lily Winters PA-C Department of Internal Medicine - Gastroenterology and Hepatology Mariia Piña MA - 03/31/2019 8:00 AM CHERITLayoanant Donald is a 29 year old female seen for 4 week follow up Additional medications were reviewed and added as needed. Appearance: healthy,alert,cooperative. This patient is accompanied in the office by her self. Patient denies any pain or complications at this time. Medications, allergies, fall risk and suicide assessment reviewed with patient / cj documented in this encounter Plan of Treatment Date Type Specialty Care Team Description 06/02/2019 Office Visit Gastroenterology Lily Winters PA [address] [place] [address] [phone] Health Maintenance Due Date Last Done Comments [...] Diagnoses Diagnosis Abdominal pain, epigastric - Primary Enteritis Other and unspecified noninfectious gastroenteritis and colitis Functional dyspepsia Dyspepsia and other specified disorders of function of stomach documented in this encounter Advance Directives Type Date Recorded Patient Learning Disabilities Teacher Explanation Advance Directives and Living Will Power of Bar Welder
--- OUTSIDE RECORDS SUMMARY | 2019-09-30 15:05 | XMS REPORT | Summary of Care ---
:1990 Author Organization [facility] Address [address] [place] [address] Care Team Providers Name Role Phone Pcp, Patient Does Not Have A Primary Care Provider Reason for Visit Reason Comments Follow-up 4 week follow up Encounter Details Date Type Department Care Team Description 03/31/2019 Office Visit [facility] Lily Winters Abdominal pain, epigastric (Primary Dx); GASTROENTEROLOGY -ELINA Brink Enteritis; [facility] Functional dyspepsia [address] [place] [address] [phone] Allergies Active Allergy Reactions Severity Noted Date [...] examination 10/17/2014 11/23/2014 Overview: ICD10 Diagnosis Term Email Administrator Utility Screening for STD (sexually transmitted disease) 10/17/2014 11/23/2014 General counseling and advice for contraceptive management 10/17/20142015 Overview: ICD10 Diagnosis Term Email Administrator Utility Other general counseling and advice for contraceptive 05/09/2013 07/20/2013 management History of section, classical 04/04/2013 10/17/2014 Immune to rubella 12/08/2012 04/21/2013 Maternal varicella, non-immune 11/17/2012 07/20/2013 Overview: Give pp Rash and other nonspecific skin eruption 10/15/2012 04/21/2013 Overview: Resolved. Supervision of other high-risk 09/16/2012 07/20/2013 Overview: ICD10 Diagnosis Term Email Administrator Utility Screening examination for pulmonary tuberculosis 09/16/2012 [...] delivered 10/03/2008 09/16/2012 Overview: ICD10 Diagnosis Term Email Administrator Utility Threatened premature labor, antepartum(644.03) 09/27/2008 10/03/2008 Early onset of delivery with baby delivered 09/07/2007 09/16/2012 Overview: ICD10 Diagnosis Term Email Administrator Utility Other infants, 500-749 grams(765.12) 09/07/2007 09/16/2012 Insufficient care 09/07/2007 09/16/2012 Breech presentation delivered 09/07/2007 09/16/2012 Overview: ICD10 Diagnosis Term Email Administrator Utility anemia 09/07/2007 09/16/2012 Overview: ICD10 Diagnosis Term Email Administrator Utility Routine infant or child health check 03/19/2007 09/16/2012 Overview: 10yr, 11yr, 12yr, 13yr, 14yr, 15yr Acute pharyngitis 03/19/2007 09/16/2012 Overview: viral Abdominal pain 03/19/2007 09/16/2012 Overview: ICD10 Diagnosis Term Email Administrator Utility Other and unspecified diseases of upper [...] the past 3-4 months. She went to [facility] ER 02/18/[address] scan showing enteritis. She was discharged on Cipro and Pepcid and reports no improvement since then. She still has intermittent epigastric pain but not as back as when she went to the ER. Pain is dull, no associated with eating or having BMs. She had diarrhea associated with the abdominal pain only when she recently went to [facility] ER. BMs are regular, formed, no [...] the past 3-4 months. She went to [facility] ER 02/18/[address] scan [...] 06/02/2019 Office Visit Gastroenterology Lily Winters PA [address] [place] [address] [phone] Health Maintenance Due Date Last Done Comments [...] encounter Advance Directives Type Date Recorded Patient Program Director/Morning Show Host Explanation Advance Directives and Living Will Power of Communication Coordinator
--- OUTSIDE RECORDS SUMMARY | 2019-09-30 15:06 | XMS REPORT | Summary of Care ---
:1990 Author Organization [facility] Address [address] [place] [address] Care Team Providers Name Role Phone Lisbet Chatterjee Primary Care Provider Reason for Referral (Routine) Status Reason Specialty Diagnoses / Referred By Referred To Procedures Contact Contact New Request Maternal Diagnoses Supervision of high risk in first trimester H/O incompetent cervix, currently History of section, classical History of delivery, currently Zaria Soto Medicine Procedures CONSULT MATERNAL MEDICINE ULTRASOUND Preferred Location: [facility] [address] [address] Reason for Visit Reason Comments M Visit Encounter Details Date Type Department Care Team Description [facility] [address] Supervision of high risk in first trimester ( Primary Dx); Visit Leticia AntoineRmchp-Np/High H/O incompetent cervix, currently ; [address] History of section, classical; [place], [place] History of delivery, currently ; [phone] Multiparity; [phone] UTI in , antepartum, first trimester; Susceptible to Varicella (non-immune), currently in first trimester Allergies Active Allergy Reactions Severity Noted Date Comments Nitrofurantoin Monohyd/M-Cryst Rash 10/30/2014 Penicillins Rash 12/01/2018 documented as of this encounter (statuses as of 09/15/2019) Medications Medication Sig Dispensed Refills Start Date End Date Status cephALEXin (KEFLEX) Take 1 capsule by 40 capsule 0 09/08/2019 09/18/2019 Active 500 mg mouth 4 (four) capsuleIndications: times daily for Urinary tract 10 days. infection in mother during first trimester of documented as of this encounter (statuses as of 09/15/2019) Active Problems Problem Noted Date UTI in , antepartum, first trimester 09/08/2019 Supervision of high risk in first trimester 09/06/2019 H/O incompetent cervix, currently 09/06/2019 History of section, classical 09/06/2019 History of delivery, currently 09/06/2019 Multiparity 09/06/2019 BMI 23.0-23.9, adult 09/06/2019 Tubal ligation status 09/06/2019 Susceptible to Varicella (non-immune), currently in first 11/17/2012 trimester Overview: Give pp Genital herpes 09/16/2012 Estimated Date of Delivery Comments Yes 05/03/2020 Based on last menstrual period of 07/28/2019 documented as of this encounter (statuses as of 09/15/2019) Resolved Problems Problem Noted Date Resolved Date Family planning counseling 05/01/2016 09/06/2019 Well woman exam without gynecological exam 05/01/2016 09/06/2019 Screen for STD (sexually transmitted disease) 05/01/2016 09/06/2019 Mixed hyperlipidemia 05/01/2016 09/06/2019 Urinary tract infection, site not specified 10/17/2014 05/01/2016 Encounter for routine gynecological examination 10/17/2014 11/23/2014 Overview: ICD10 Diagnosis Term Quality Improvement Engineer Utility Screening for STD (sexually transmitted disease) 10/17/2014 11/23/2014 General counseling and advice for contraceptive management 10/17/20142015 Overview: ICD10 Diagnosis Term Quality Improvement Engineer Utility Other general counseling and advice for contraceptive 05/09/2013 07/20/2013 management History of section, classical 04/04/2013 10/17/2014 Immune to rubella 12/08/2012 04/21/2013 Rash and other nonspecific skin eruption 10/15/2012 04/21/2013 Overview: Resolved. Supervision of other high-risk 09/16/2012 07/20/2013 Overview: ICD10 Diagnosis Term Quality Improvement Engineer Utility Screening examination for pulmonary tuberculosis 09/16/2012 [...] delivered 10/03/2008 09/16/2012 Overview: ICD10 Diagnosis Term Quality Improvement Engineer Utility Threatened premature labor, antepartum(644.03) 09/27/2008 10/03/2008 Early onset of delivery with baby delivered 09/07/2007 09/16/2012 Overview: ICD10 Diagnosis Term Quality Improvement Engineer Utility Other infants, 500-749 grams(765.12) 09/07/2007 09/16/2012 Insufficient care 09/07/2007 09/16/2012 Breech presentation delivered 09/07/2007 09/16/2012 Overview: ICD10 Diagnosis Term Quality Improvement Engineer Utility anemia 09/07/2007 09/16/2012 Overview: ICD10 Diagnosis Term Quality Improvement Engineer Utility Routine infant or child health check 03/19/2007 09/16/2012 Overview: 10yr, 11yr, 12yr, 13yr, 14yr, 15yr Acute pharyngitis 03/19/2007 09/16/2012 Overview: viral Abdominal pain 03/19/2007 09/16/2012 Overview: ICD10 Diagnosis Term Quality Improvement Engineer Utility Other and unspecified diseases of upper respiratory tract 03/19/20072012 Contusion of foot 03/19/2007 09/16/2012 Overview: right documented as of this encounter (statuses as of 09/15/2019) Immunizations Name Administration Dates Next Due HEPATITIS [...] Sign Reading Time Taken Comments Blood Pressure 106/73 09/15/2019 8:37 AM RADIAL DRILL PRESS OPERATOR FOR PLASTIC Pulse 72 09/15/2019 8:37 AM RADIAL DRILL PRESS OPERATOR FOR PLASTIC Temperature 36.4 C (97.5 F) 09/15/2019 8:37 AM RADIAL DRILL PRESS OPERATOR FOR PLASTIC Respiratory Rate 16 09/15/2019 8:37 AM RADIAL DRILL PRESS OPERATOR FOR PLASTIC Oxygen Saturation - - Inhaled Oxygen Concentration - - Weight 59.2 kg (130 lb 8 oz) 09/15/2019 8:37 AM RADIAL DRILL PRESS OPERATOR FOR PLASTIC Height 157.5 cm (5' 2") 09/15/2019 8:37 AM RADIAL DRILL PRESS OPERATOR FOR PLASTIC Body Mass Index 23.87 09/15/2019 8:37 AM RADIAL DRILL PRESS OPERATOR FOR PLASTIC documented in this encounter Progress Notes Zaria Soto, RAMON - 09/15/2019 8:30 AM CST Chief complaint: Chief Complaint Patient presents with MFM Visit HPI Kellie Donald is a 29 year old HF who is 7w0d with IUP. Her Estimated Date of Delivery: 05/03/20 by LMP. Denies headache, n/v, visual changes, sob,cp , ruq pain, bleeding,lof and ctxs. Histories OB History Para Term AB Living [...] Guerrero MD; Location: [facility] DEL[facility]ERY [facility] Social History Socioeconomic History Marital status: Spouse [...] file Gets together: Not on file Attends sabianist service: Not on file Active member of [...] Asked Self-Exams Not Asked Social History Narrative Zoroastrian is Roman Catholic No domestic violence at home Lives with children. Safe environment. Social History Substance and Sexual Activity Sexual Activity Yes Partners: Male control/protection: None Comment: last sex 08/17/19 Labs No new labs Radiology No new radiology. Allergies Kellie is allergic to macrobid [nitrofurantoin monohyd/m-cryst] and pcn [ penicillins]. Medications Kellie has a current medication list which includes the following prescription(s) : cephalexin. Review of Systems See HPI BP 106/73 (BP Location: Right arm, Patient Position: Sitting, BP CUFF SIZE: Adult Medium) | Pulse 72 | Temp 36.4 C (97.5 F) (Oral) | Resp 16 | Ht 5 ' 2" (1.575 m) | Wt 130 lb 8 oz (59.2 kg) | LMP 07/28/2019 | BMI 23.87 kg/m Pregravid BMI: Could not be calculated Physical Exam CONSTITUTIONAL: no apparent distress, appearing age-appropriate. GASTROINTESTINAL: abdomen soft, nontender, . NEUROLOGICAL/PSYCHIATRIC: alert, awake, and oriented x 3. Normal mood and affect. EXTREMITIES: No calf tenderness bilaterally.no pitting edema bilaterally. Musculoskeletal: no clubbing, cyanosis or edema, peripheral pulses 2+ in all extremities Assessment/Plan at 7w0d Supervision of high risk in first trimester (primary encounter diagnosis) Comment: 7w0d Plan: POCT URINALYSIS W/O SPECIFIC GRAVITY, CONSULT MATERNAL MEDICINE ULTRASOUND Preferred Location: [facility] H/O incompetent cervix, currently Comment: had PTD @22 and 27wks. Plan: CONSULT MATERNAL MEDICINE ULTRASOUND Preferred Location: [facility] Discussed recommendations for weekly cervical lengths from 16-24wks- patient agrees to poc Will refer for this once dating usg done History of section, classical Comment: prev classical c/s x2 Plan: CONSULT MATERNAL MEDICINE ULTRASOUND Preferred Location: [facility] Will need repeat c/s at 36-37wks History of delivery, currently Comment: OB History Para Term AB Living 4 [...] labor was due to an incompetent cervix Pt was on Marcia injections with last and carried to 35w5d Plan: CONSULT MATERNAL MEDICINE ULTRASOUND Preferred Location: [place] Discussed option for Marcia for this and patient desires to have weekly injections. Will fill forms out around 12-13wks Multiparity Comment: Plan: will discuss contraception options later UTI in , antepartum, first trimester Comment: on abx Plan: needs urine JOSIE once abx completed Varicella NI Needs vaccine pp ER warnings given ELLI Whtie- #[id number] This visit did not involve counseling and coordination that comprised more than 50% of the visit time. documented in this encounter Plan of Treatment Date Type Specialty Care Team Description 10/06/2019 Routine Visit OB Satellites Risk, Lit-Xqqry-Px/High Health Maintenance Due Date Last Done Comments [...] Associated Diagnosis Comments POCT URINALYSIS W/O Routine 09/15/2019 8:41 Supervision of high Results for this SPECIFIC GRAVITY AM RADIAL DRILL PRESS OPERATOR FOR PLASTIC risk in procedure are in first trimester the results section. documented in this encounter Results POCT URINALYSIS W/O SPECIFIC GRAVITY (09/15/2019 8:41 AM RADIAL DRILL PRESS OPERATOR FOR PLASTIC) POCT PH U 6 5 - 8 mg/dl POCT U LEUK EST trace Negative - Negative POCT U NIT neg [...] currently with history of pre-term labor Multiparity UTI in , antepartum, first trimester Susceptible to Varicella (non-immune), currently in first trimester documented in this encounter Insurance Payer Benefit Plan Subscriber ID Effective Dates Phone Address Type / Group MEDICAID CHIP PERI PENDING 2019-[address]ending [place] [address] documented as of this encounter Advance Directives Type Date Recorded Patient Facilities Operator Explanation Advance Directives and Living Will Power of House Director
--- OUTSIDE RECORDS SUMMARY | 2019-09-30 15:06 | XMS REPORT | Summary of Care ---
:1990 Author Organization [facility] Address [address] [place] [address] Care Team Providers Name Role Phone Lisbet Chatterjee FIREARMS SPECIALIST Primary Care Provider Reason for Visit Reason Comments Assessment spotting when she wipes Encounter Details Date Type Department Care Team Description 09/19/2019 Telephone [facility]- Lisbet Chatterjee, Assessment ( spotting [facility] when [facility] wipes) [address] [facility] [address] [place], [place] [id number] Allergies Active Allergy Reactions Severity Noted Date Comments Nitrofurantoin Monohyd/M-Cryst Rash 10/30/2014 Penicillins Rash 12/01/2018 documented as of this encounter (statuses as of 09/19/2019) Medications No known medicationsdocumented as of this encounter (statuses as of 09/19/2019) Active Problems Problem Noted Date UTI in [...] as of this encounter (statuses as of 09/19/2019) Resolved Problems Problem Noted Date Resolved Date Family planning counseling 05/01/2016 09/06/2019 Well woman exam without gynecological exam 05/01/2016 09/06/2019 Screen for STD (sexually transmitted disease) 05/01/2016 09/06/2019 Mixed hyperlipidemia 05/01/2016 09/06/2019 Urinary tract infection, site not specified 10/17/2014 05/01/2016 Encounter for routine gynecological examination 10/17/2014 11/23/2014 Overview: ICD10 Diagnosis Term Process Manager Utility Screening for STD (sexually transmitted disease) 10/17/2014 11/23/2014 General counseling and advice for contraceptive management 10/17/20142015 Overview: ICD10 Diagnosis Term Process Manager Utility Other general counseling and advice for contraceptive 05/09/2013 07/20/2013 management History of section, classical 04/04/2013 10/17/2014 Immune to rubella 12/08/2012 04/21/2013 Rash and other nonspecific skin eruption 10/15/2012 04/21/2013 Overview: Resolved. Supervision of other high-risk 09/16/2012 07/20/2013 Overview: ICD10 Diagnosis Term Process Manager Utility Screening examination for pulmonary tuberculosis 09/16/2012 [...] delivered 10/03/2008 09/16/2012 Overview: ICD10 Diagnosis Term Process Manager Utility Threatened premature labor, antepartum(644.03) 09/27/2008 10/03/2008 Early onset of delivery with baby delivered 09/07/2007 09/16/2012 Overview: ICD10 Diagnosis Term Process Manager Utility Other infants, 500-749 grams(765.12) 09/07/2007 09/16/2012 Insufficient care 09/07/2007 09/16/2012 Breech presentation delivered 09/07/2007 09/16/2012 Overview: ICD10 Diagnosis Term Process Manager Utility anemia 09/07/2007 09/16/2012 Overview: ICD10 Diagnosis Term Process Manager Utility Routine or child health check 03/19/2007 09/16/2012 Overview: 10yr, 11yr, 12yr, 13yr, 14yr, 15yr Acute pharyngitis 03/19/2007 09/16/2012 Overview: viral Abdominal pain 03/19/2007 09/16/2012 Overview: ICD10 Diagnosis Term Process Manager Utility Other and unspecified diseases of upper respiratory tract 03/19/20072012 Contusion of foot 03/19/2007 09/16/2012 Overview: right documented as of this encounter (statuses as of 09/19/2019) Immunizations Name Administration Dates Next Due HEPATITIS [...] Treatment Date Type Specialty Care Team Description 09/19/2019 Routine Visit OB Satellites Lisbet Chatterjee, FIREARMS SPECIALIST [address] [place] [address] [phone] 10/06/2019 Routine Visit OB SatelliteKevon Fountainchp-Np/High Health Maintenance Due Date Last Done Comments [...] Results Not on filedocumented in this encounter Insurance Payer Benefit Plan Subscriber ID Effective Dates Phone Address Type / Group MEDICAID CHIP PERI PENDING 2019-[address] [place] [address] documented as of this encounter Advance Directives Type Date Recorded Patient Grain Ii Farmworker Explanation Advance Directives and Living Will Power of Soil Sampler
--- OUTSIDE RECORDS SUMMARY | 2019-09-30 15:06 | XMS REPORT | Summary of Care ---
:1990 Author Organization [facility] Address [address] [place] [address] Care Team Providers Name Role Phone Lisbet Chatterjee Primary Care Provider Encounter Details Date Type Department Care Team Description 09/06/2019 Orders Only [facility] Doctor Unassigned, No [address] [facility] [place] [address] [address] [place] [id number] Allergies Active Allergy Reactions Severity Noted Date Comments Nitrofurantoin Monohyd/M-Cryst Rash 10/30/2014 Penicillins Rash 12/01/2018 documented as of this encounter (statuses as of 09/06/2019) Medications No known medicationsdocumented as of this [...] examination 10/17/2014 11/23/2014 Overview: ICD10 Diagnosis Term Machinist Brake Utility Screening for STD (sexually transmitted disease) 10/17/2014 11/23/2014 General counseling and advice for contraceptive management 10/17/20142015 Overview: ICD10 Diagnosis Term Machinist Brake Utility Other general counseling and advice for contraceptive 05/09/2013 07/20/2013 management History of section, classical 04/04/2013 10/17/2014 Immune to rubella 12/08/2012 04/21/2013 Maternal varicella, non-immune 11/17/2012 07/20/2013 Overview: Give pp Rash and other nonspecific skin eruption 10/15/2012 04/21/2013 Overview: Resolved. Supervision of other high-risk 09/16/2012 07/20/2013 Overview: ICD10 Diagnosis Term Machinist Brake Utility Screening examination for pulmonary tuberculosis 09/16/2012 [...] delivered 10/03/2008 09/16/2012 Overview: ICD10 Diagnosis Term Machinist Brake Utility Threatened premature labor, antepartum(644.03) 09/27/2008 10/03/2008 Early onset of delivery with baby delivered 09/07/2007 09/16/2012 Overview: ICD10 Diagnosis Term Machinist Brake Utility Other infants, 500-749 grams(765.12) 09/07/2007 09/16/2012 Insufficient care 09/07/2007 09/16/2012 Breech presentation delivered 09/07/2007 09/16/2012 Overview: ICD10 Diagnosis Term Machinist Brake Utility anemia 09/07/2007 09/16/2012 Overview: ICD10 Diagnosis Term Machinist Brake Utility Routine infant or child health check 03/19/2007 09/16/2012 Overview: 10yr, 11yr, 12yr, 13yr, 14yr, 15yr Acute pharyngitis 03/19/2007 09/16/2012 Overview: viral Abdominal pain 03/19/2007 09/16/2012 Overview: ICD10 Diagnosis Term Machinist Brake Utility Other and unspecified diseases of upper [...] Description 09/15/2019 Routine Visit OB Satellites Risk, Zrx-Ylfue-Us/High Health Maintenance Due Date Last Done Comments [...] Procedure Name Priority Date/Time Associated Diagnosis Comments REPORT OF Routine 09/06/2019 12:01 AM WINDOW/DISTRIBUTION CLERK documented in this encounter Results Not on filedocumented in this encounter Insurance Payer Benefit Plan Subscriber ID Effective Dates Phone Address Type / Group MEDICAID CHIP BASILIO PENDING 2019-[address] Pending [place] [address] documented as of this encounter Advance Directives Type Date Recorded Patient Sales Representative Gas Service Explanation Advance Directives and Living Will Power of Team Truck Driver
--- OUTSIDE RECORDS SUMMARY | 2019-09-30 15:06 | XMS REPORT | Summary of Care ---
:1990 Author Organization [facility] Address [address] [place] [address] Care Team Providers Name Role Phone Lisbet Chatterjee Primary Care Provider Reason for Visit Reason Comments Lab Results Encounter Details Date Type Department Care Team Description 09/08/2019 Telephone [facility] Lisbet Chatterjee FNP Lab Results [address] [place] [address] Alexx A [phone] [place] [address] Allergies Active Allergy Reactions Severity Noted Date Comments Nitrofurantoin Monohyd/M-Cryst Rash 10/30/2014 Penicillins Rash 12/01/2018 documented as of this encounter (statuses as of 09/09/2019) Medications Medication Sig Dispensed Refills Start Date End Date Status cephALEXin (KEFLEX) Take 1 capsule by 40 capsule 0 09/08/2019 09/18/2019 Active 500 mg mouth 4 (four) capsuleIndications: times daily for Urinary tract 10 days. infection in mother during first trimester of documented as of this encounter (statuses as of 09/09/2019) Active Problems Problem Noted Date Urinary tract infection in mother during first trimester of 2019 Supervision of high risk in first trimester 09/06/2019 H/O incompetent cervix, currently 09/06/2019 History of section, classical 09/06/2019 History of delivery, currently 09/06/2019 Multiparity 09/06/2019 BMI 23.0-23.9, adult 09/06/2019 Tubal ligation status 09/06/2019 Susceptible to varicella (non-immune), currently 11/17/2012 Overview: Give pp Genital herpes 09/16/2012 Estimated Date of Delivery Comments Yes 05/03/2020 Based on last menstrual period of 07/28/2019 documented as of this encounter (statuses as of 09/09/2019) Resolved Problems Problem Noted Date Resolved Date Family planning counseling 05/01/2016 09/06/2019 Well woman exam without gynecological exam 05/01/2016 09/06/2019 Screen for STD (sexually transmitted disease) 05/01/2016 09/06/2019 Mixed hyperlipidemia 05/01/2016 09/06/2019 Urinary tract infection, site not specified 10/17/2014 05/01/2016 Encounter for routine gynecological examination 10/17/2014 11/23/2014 Overview: ICD10 Diagnosis Term Groundman/Lineman Utility Screening for STD (sexually transmitted disease) 10/17/2014 11/23/2014 General counseling and advice for contraceptive management 10/17/20142015 Overview: ICD10 Diagnosis Term Groundman/Lineman Utility Other general counseling and advice for contraceptive 05/09/2013 07/20/2013 management History of section, classical 04/04/2013 10/17/2014 Immune to rubella 12/08/2012 04/21/2013 Rash and other nonspecific skin eruption 10/15/2012 04/21/2013 Overview: Resolved. Supervision of other high-risk 09/16/2012 07/20/2013 Overview: ICD10 Diagnosis Term Groundman/Lineman Utility Screening examination for pulmonary tuberculosis 09/16/2012 [...] delivered 10/03/2008 09/16/2012 Overview: ICD10 Diagnosis Term Groundman/Lineman Utility Threatened premature labor, antepartum(644.03) 09/27/2008 10/03/2008 Early onset of delivery with baby delivered 09/07/2007 09/16/2012 Overview: ICD10 Diagnosis Term Groundman/Lineman Utility Other infants, 500-749 grams(765.12) 09/07/2007 09/16/2012 Insufficient care 09/07/2007 09/16/2012 Breech presentation delivered 09/07/2007 09/16/2012 Overview: ICD10 Diagnosis Term Groundman/Lineman Utility anemia 09/07/2007 09/16/2012 Overview: ICD10 Diagnosis Term Groundman/Lineman Utility Routine infant or child health check 03/19/2007 09/16/2012 Overview: 10yr, 11yr, 12yr, 13yr, 14yr, 15yr Acute pharyngitis 03/19/2007 09/16/2012 Overview: viral Abdominal pain 03/19/2007 09/16/2012 Overview: ICD10 Diagnosis Term Groundman/Lineman Utility Other and unspecified diseases of upper respiratory tract 03/19/20072012 Contusion of foot 03/19/2007 09/16/2012 Overview: right documented as of this encounter (statuses as of 09/09/2019) Immunizations Name Administration Dates Next Due HEPATITIS [...] Description 09/15/2019 Routine Visit OB Satellites Risk, Nkm-Xtnjx-Xh/High Health Maintenance Due Date Last Done Comments [...] filedocumented in this encounter Visit Diagnoses Diagnosis Urinary tract infection in mother during first trimester of - Primary documented in this encounter Insurance Payer Benefit Plan Subscriber ID Effective Dates Phone Address Type / Group MEDICAID CHIP PERI PENDING 2019-[address] [place] [address] documented as of this encounter Advance Directives Type Date Recorded Patient Roll Forming Supervisor Explanation Advance Directives and Living Will Power of Merchant Miller
--- OUTSIDE RECORDS SUMMARY | 2019-09-30 15:07 | XMS REPORT | Summary of Care ---
:1990 Author Organization [facility] Address [address] [place] [address] Care Team Providers Name Role Phone Lisbet Chatterjee Primary Care Provider Encounter Details Date Type Department Care Team Description 09/[facility]2019 [facility], POWER MANAGER [address] [place] [address] Alexx A [phone] [place] [address] Allergies Active Allergy Reactions Severity Noted Date Comments Nitrofurantoin Monohyd/M-Cryst Rash 10/30/2014 Penicillins Rash 12/01/2018 documented as of this encounter (statuses as of 09/22/2019) Medications No known medicationsdocumented as of this encounter (statuses as of 09/22/2019) Active Problems Problem Noted Date UTI in [...] 09/16/2012 Estimated Date of Delivery Comments Yes 05/15/2020 Based on Ultrasound documented as of this encounter (statuses as of 09/22/2019) Resolved Problems Problem Noted Date Resolved Date Family planning counseling 05/01/2016 09/06/2019 Well woman exam without gynecological exam 05/01/2016 09/06/2019 Screen for STD (sexually transmitted disease) 05/01/2016 09/06/2019 Mixed hyperlipidemia 05/01/2016 09/06/2019 Urinary tract infection, site not specified 10/17/2014 05/01/2016 Encounter for routine gynecological examination 10/17/2014 11/23/2014 Overview: ICD10 Diagnosis Term Restrooms Or Lounges Maid Utility Screening for STD (sexually transmitted disease) 10/17/2014 11/23/2014 General counseling and advice for contraceptive management 10/17/20142015 Overview: ICD10 Diagnosis Term Restrooms Or Lounges Maid Utility Other general counseling and advice for contraceptive 05/09/2013 07/20/2013 management History of section, classical 04/04/2013 10/17/2014 Immune to rubella 12/08/2012 04/21/2013 Rash and other nonspecific skin eruption 10/15/2012 04/21/2013 Overview: Resolved. Supervision of other high-risk 09/16/2012 07/20/2013 Overview: ICD10 Diagnosis Term Restrooms Or Lounges Maid Utility Screening examination for pulmonary tuberculosis 09/16/2012 [...] delivered 10/03/2008 09/16/2012 Overview: ICD10 Diagnosis Term Restrooms Or Lounges Maid Utility Threatened premature labor, antepartum(644.03) 09/27/2008 10/03/2008 Early onset of delivery with baby delivered 09/07/2007 09/16/2012 Overview: ICD10 Diagnosis Term Restrooms Or Lounges Maid Utility Other infants, 500-749 grams(765.12) 09/07/2007 09/16/2012 Insufficient care 09/07/2007 09/16/2012 Breech presentation delivered 09/07/2007 09/16/2012 Overview: ICD10 Diagnosis Term Restrooms Or Lounges Maid Utility anemia 09/07/2007 09/16/2012 Overview: ICD10 Diagnosis Term Restrooms Or Lounges Maid Utility Routine or child health check 03/19/2007 09/16/2012 Overview: 10yr, 11yr, 12yr, 13yr, 14yr, 15yr Acute pharyngitis 03/19/2007 09/16/2012 Overview: viral Abdominal pain 03/19/2007 09/16/2012 Overview: ICD10 Diagnosis Term Restrooms Or Lounges Maid Utility Other and unspecified diseases of upper respiratory tract 03/19/20072012 Contusion of foot 03/19/2007 09/16/2012 Overview: right documented as of this encounter (statuses as of 09/22/2019) Immunizations Name Administration Dates Next Due HEPATITIS A 02/05/2007 HPV 02/05/2007 Influenza Virus Vaccine 03/24/2013 Meningococcal Vaccine 02/05/2007 Tdap 02/17/2013, 02/05/2007 Varicella (varivax)(chicken pox) 04/24/2013 documented as of this encounter Social History Tobacco Use Types Packs/Day Years Used Date Never Smoker Smokeless Tobacco: Never Used Alcohol Use Drinks/Week oz/Week Comments No Estimated Date of Delivery Comments Yes 05/15/2020 Based on Ultrasound Sex Assigned at Date Recorded Not on file Job Start Date Occupation Industry Not on file Not on file Not on file Travel History Travel Start Travel End No recent travel history available. documented as of this encounter Last Filed Vital Signs Not on filedocumented in this encounter Plan of Treatment Date Type Specialty Care Team Description 10/06/2019 Routine Visit OB Satellites Risk, Vad-Nexsg-Qm/High Health Maintenance Due Date Last Done Comments [...] Payer Benefit Plan / Subscriber ID Effective Dates Phone Address Type Group CHIP BRIDGET [facility] MOM CHIP [id number] 2019-Present CHIP Br[employer] [facility] [phone] CHOICE documented as of this encounter Advance Directives Type Date Recorded Patient Cycle Counter Explanation Advance Directives and Living Will Power of Couturiere
--- OUTSIDE RECORDS SUMMARY | 2019-09-30 15:07 | XMS REPORT | Summary of Care ---
:[address] [facility] Address [address] [place] [address] Care Team Providers Name Role Phone Lisbet Chatterjee Primary Care Provider Reason for Visit Reason Comments LAB Encounter Details Date Type Department Care Team Description 09/21/2019 Leadite Worker [facility], CNP [address] [place] [address] Threatened , [facility], Ang-Rmchp antepartum [address] [place] [address] Allergies Active Allergy Reactions Severity Noted Date Comments Nitrofurantoin Monohyd/M-Cryst Rash 10/30/2014 Penicillins Rash 12/01/2018 documented as of this encounter (statuses as of 09/21/2019) Medications No known medicationsdocumented as of this encounter (statuses as of 09/21/2019) Active Problems Problem Noted Date UTI in [...] as of this encounter (statuses as of 09/21/2019) Resolved Problems Problem Noted Date Resolved Date Family planning counseling 05/01/2016 09/06/2019 Well woman exam without gynecological exam 05/01/2016 09/06/2019 Screen for STD (sexually transmitted disease) 05/01/2016 09/06/2019 Mixed hyperlipidemia 05/01/2016 09/06/2019 Urinary tract infection, site not specified 10/17/2014 05/01/2016 Encounter for routine gynecological examination 10/17/2014 11/23/2014 Overview: ICD10 Diagnosis Term Residential Assistant Utility Screening for STD (sexually transmitted disease) 10/17/2014 11/23/2014 General counseling and advice for contraceptive management 10/17/20142015 Overview: ICD10 Diagnosis Term Residential Assistant Utility Other general counseling and advice for contraceptive 05/09/2013 07/20/2013 management History of section, classical 04/04/2013 10/17/2014 Immune to rubella 12/08/2012 04/21/2013 Rash and other nonspecific skin eruption 10/15/2012 04/21/2013 Overview: Resolved. Supervision of other high-risk 09/16/2012 07/20/2013 Overview: ICD10 Diagnosis Term Residential Assistant Utility Screening examination for pulmonary tuberculosis 09/16/2012 [...] delivered 10/03/2008 09/16/2012 Overview: ICD10 Diagnosis Term Residential Assistant Utility Threatened premature labor, antepartum(644.03) 09/27/2008 10/03/2008 Early onset of delivery with baby delivered 09/07/2007 09/16/2012 Overview: ICD10 Diagnosis Term Residential Assistant Utility Other infants, 500-749 grams(765.12) 09/07/2007 09/16/2012 Insufficient care 09/07/2007 09/16/2012 Breech presentation delivered 09/07/2007 09/16/2012 Overview: ICD10 Diagnosis Term Residential Assistant Utility anemia 09/07/2007 09/16/2012 Overview: ICD10 Diagnosis Term Residential Assistant Utility Routine or child health check 03/19/2007 09/16/2012 Overview: 10yr, 11yr, 12yr, 13yr, 14yr, 15yr Acute pharyngitis 03/19/2007 09/16/2012 Overview: viral Abdominal pain 03/19/2007 09/16/2012 Overview: ICD10 Diagnosis Term Residential Assistant Utility Other and unspecified diseases of upper respiratory tract 03/19/20072012 Contusion of foot 03/19/2007 09/16/2012 Overview: right documented as of this encounter (statuses as of 09/21/2019) Immunizations Name Administration Dates Next Due HEPATITIS [...] Treatment Date Type Specialty Care Team Description 09/21/2019 Leadite Worker Visit Maternal Akinsipe, Roseann Medicine C, CNP [address] [place] [address] [phone] 10/06/2019 Routine Visit OB Satellites Risk, Sjv-Lxbvd-Lw/High Name Type Priority Associated Diagnoses Date/Time TOTAL BETA HCG ASSAY LAB Routine Threatened , 09/21/2019 2:49 PM CDT antepartum Health Maintenance Due Date Last Done Comments [...] filedocumented in this encounter Visit Diagnoses Diagnosis Threatened , antepartum documented in this encounter Insurance Payer Benefit Plan / Subscriber ID Effective Dates Phone Address Type Group CHIP BRIDGET [facility] [id number] 2019-Present CHIP Br[employer] [facility] [phone] FPL CHOICE documented as of this encounter Advance Directives Type Date Recorded 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
--- OUTSIDE RECORDS SUMMARY | 2019-09-30 15:07 | XMS REPORT | Summary of Care ---
:1990 Author Organization [facility] Address [address] [place] [address] Care Team Providers Name Role Phone Lisbet Chatterjee Primary Care Provider Reason for Visit Reason Comments ULTRASOUND (ISIDRA) Status Reason Specialty Diagnoses / Referred By Referred To Procedures Contact Contact Authorized Maternal Diagnoses Threatened , antepartum Lisbet Chatterjee Medicine Procedures CONSULT MATERNAL MEDICINE ULTRASOUND Preferred Location: [facility] [address] [place] [address] Encounter Details Date Type Department Care Team Description 09/21/2019 Yarn Preparation Supervisor Visit [facility] Roseann Brewster, CNP [address] [place], [place] [id number] Uterine size-date discrepancy in first trimester; Ultrasound- Cameron Preeti Guerrero MD [address] [facility] [id number] [place] [address] Ultrasound scan to confirm viability with history of miscarriage [address] [place] [address] Allergies Active Allergy Reactions Severity [...] examination 10/17/2014 11/23/2014 Overview: ICD10 Diagnosis Term Cubing Machine Tender Utility Screening for STD (sexually transmitted disease) 10/17/2014 11/23/2014 General counseling and advice for contraceptive management 10/17/20142015 Overview: ICD10 Diagnosis Term Cubing Machine Tender Utility Other general counseling and advice for contraceptive 05/09/2013 07/20/2013 management History of section, classical 04/04/2013 10/17/2014 Immune to rubella 12/08/2012 04/21/2013 Rash and other nonspecific skin eruption 10/15/2012 04/21/2013 Overview: Resolved. Supervision of other high-risk 09/16/2012 07/20/2013 Overview: ICD10 Diagnosis Term Cubing Machine Tender Utility Screening examination for pulmonary tuberculosis 09/16/2012 [...] delivered 10/03/2008 09/16/2012 Overview: ICD10 Diagnosis Term Cubing Machine Tender Utility Threatened premature labor, antepartum(644.03) 09/27/2008 10/03/2008 Early onset of delivery with baby delivered 09/07/2007 09/16/2012 Overview: ICD10 Diagnosis Term Cubing Machine Tender Utility Other infants, 500-749 grams(765.12) 09/07/2007 09/16/2012 Insufficient care 09/07/2007 09/16/2012 Breech presentation delivered 09/07/2007 09/16/2012 Overview: ICD10 Diagnosis Term Cubing Machine Tender Utility anemia 09/07/2007 09/16/2012 Overview: ICD10 Diagnosis Term Cubing Machine Tender Utility Routine or child health check 03/19/2007 09/16/2012 Overview: 10yr, 11yr, 12yr, 13yr, 14yr, 15yr Acute pharyngitis 03/19/2007 09/16/2012 Overview: viral Abdominal pain 03/19/2007 09/16/2012 Overview: ICD10 Diagnosis Term Cubing Machine Tender Utility Other and unspecified diseases of upper [...] Description 10/06/2019 Routine Visit OB Satellites Risk, Dyv-Mauec-Au/High Health Maintenance Due Date Last Done Comments [...] filedocumented in this encounter Visit Diagnoses Diagnosis Uterine size-date discrepancy in first trimester Uterine size date discrepancy, antepartum condition or complication Ultrasound scan to confirm viability with history of miscarriage Encounter for routine screening for malformation using ultrasonics documented in this encounter Insurance Payer Benefit Plan / Subscriber ID Effective Dates Phone Address Type Group CHIP [facility]IO [facility] [id number] 2019-Present CHIP Bas[employer] [facility] [phone] FPL CHOICE documented as of this encounter Advance Directives Type Date Recorded 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
--- OUTSIDE RECORDS SUMMARY | 2019-09-30 15:07 | XMS REPORT | Summary of Care ---
:1990 Author Organization [facility] Address [address] [place] [address] Care Team Providers Name Role Phone Lisbet Chatterjee Primary Care Provider Reason for Referral (ISIDRA) Status Reason Specialty Diagnoses / Referred By Referred To Procedures Contact Contact Authorized Maternal Diagnoses Threatened , antepartum Lisbet Chatterjee Medicine Procedures CONSULT MATERNAL MEDICINE ULTRASOUND Preferred Location: [facility]ott [address] [place] [address] Reason for Visit Reason Comments Care GROUP ART SUPERVISOR problem Encounter Details Date Type Department Care Team Description 09/19/2019 Routine [facility]- Lisbet Chatterjee Supervision of high risk in first trimester (Primary Dx); Visit [facility] Threatened , antepartum [address] [place] [address] [place], [place] [phone] Allergies Active Allergy Reactions Severity Noted [...] examination 10/17/2014 11/23/2014 Overview: ICD10 Diagnosis Term Oriental Rug Stretcher Utility Screening for STD (sexually transmitted disease) 10/17/2014 11/23/2014 General counseling and advice for contraceptive management 10/17/20142015 Overview: ICD10 Diagnosis Term Oriental Rug Stretcher Utility Other general counseling and advice for contraceptive 05/09/2013 07/20/2013 management History of section, classical 04/04/2013 10/17/2014 Immune to rubella 12/08/2012 04/21/2013 Rash and other nonspecific skin eruption 10/15/2012 04/21/2013 Overview: Resolved. Supervision of other high-risk 09/16/2012 07/20/2013 Overview: ICD10 Diagnosis Term Oriental Rug Stretcher Utility Screening examination for pulmonary tuberculosis 09/16/2012 [...] delivered 10/03/2008 09/16/2012 Overview: ICD10 Diagnosis Term Oriental Rug Stretcher Utility Threatened premature labor, antepartum(644.03) 09/27/2008 10/03/2008 Early onset of delivery with baby delivered 09/07/2007 09/16/2012 Overview: ICD10 Diagnosis Term Oriental Rug Stretcher Utility Other infants, 500-749 grams(765.12) 09/07/2007 09/16/2012 Insufficient care 09/07/2007 09/16/2012 Breech presentation delivered 09/07/2007 09/16/2012 Overview: ICD10 Diagnosis Term Oriental Rug Stretcher Utility anemia 09/07/2007 09/16/2012 Overview: ICD10 Diagnosis Term Oriental Rug Stretcher Utility Routine or child health check 03/19/2007 09/16/2012 Overview: 10yr, 11yr, 12yr, 13yr, 14yr, 15yr Acute pharyngitis 03/19/2007 09/16/2012 Overview: viral Abdominal pain 03/19/2007 09/16/2012 Overview: ICD10 Diagnosis Term Oriental Rug Stretcher Utility Other and unspecified diseases of upper [...] Sign Reading Time Taken Comments Blood Pressure 99/66 09/19/2019 3:25 PM CDT Pulse 62 09/19/2019 3:25 PM CDT Temperature 36.7 C (98 F) 09/19/2019 3:25 PM CDT Respiratory Rate 16 09/19/2019 3:25 PM CDT Oxygen Saturation - - Inhaled Oxygen Concentration - - Weight 58.3 kg (128 lb 9 oz) 09/19/2019 3:25 PM CDT Height 157.5 cm (5' 2") 09/19/2019 3:25 PM CDT Body Mass Index 23.51 09/19/2019 3:25 PM CDT documented in this encounter Progress Notes Lisbet Chatterjee, RUBBER CURER - 09/19/2019 3:15 PM CDT Chief complaint: Chief Complaint Patient presents with Care GROUP ART SUPERVISOR problem HPI Kellie Donald is a 29 year old female is a @ 7w4d here for problem visit. Patient's last menstrual period was . Estimated Date of Delivery: 05/03/20 Pt reports she started noticing a pink discharge today. Denies any red or dark bleeding. Denies painor cramping. Last intercourse 1 week ago. She is taking PNV. She does not yet endorse FM. She denies any ctx/cramping, , LOF, BRODY, visual disturbance, vaginal discharge or dysuria. She denies any foreign travel. She also denies any physical, sexual or emotional abuse. Histories OB History Para Term AB Living [...] file Gets together: Not on file Attends religion service: Not on file Active member of [...] Asked Self-Exams Not Asked Social History Narrative Yarsani is Hindu No domestic violence at home Lives with children. Safe environment. Social History Substance and Sexual Activity Sexual Activity Yes Partners: Male control/protection: None Comment: last sex 08/17/19 Labs I have reviewed the patient's labs. and Labs are pending. Radiology Radiology pending. Allergies Kellie is allergic to macrobid [nitrofurantoin monohyd/m-cryst] and pcn [ penicillins]. Medications Kellie currently has no medications in their medication list. Review of Systems Constitutional: Negative for appetite change, fatigue and fever. Eyes: Negative for visual disturbance. Respiratory: Negative. Cardiovascular: Negative for palpitations and leg swelling. Gastrointestinal: Negative for abdominal pain, constipation, diarrhea, nausea and vomiting. Genitourinary: Positive for vaginal bleeding. Negative for dysuria, vaginal discharge and pelvic pain. Musculoskeletal: Negative. Skin: Negative for rash. Neurological: Negative for dizziness, light-headedness and headaches. Psychiatric/Behavioral: Negative. BP 99/66 (BP Location: Right arm, Patient Position: Sitting, BP CUFF SIZE: Adult Medium) | Pulse 62 | Temp 36.7 C (98 F) (Oral) | Resp 16 | Ht 5' 2 " (1.575 m) | Wt 128 lb 9 oz (58.3 kg) | LMP07/28/2019 | BMI 23.51 kg/m Pregravid BMI: Could not be calculated Physical Exam Vitals reviewed. Constitutional: She is oriented to person, place, and time. She appears well- developed and well-nourished. See flowsheet Cardiovascular: No peripheral edema present. Pulmonary/Chest: Normal inspiratory effort. Neuro/Psychiatric: She has a normal mood and affect. She is oriented to person, place, and time. Skin: Skin normal. Assessment/Plan 1. Supervision of high risk in first trimester 7w4d - POCT URINALYSIS W/O SPECIFIC GRAVITY 2. Threatened , antepartum Plan beta level today and repeat in 48 hours Viability ultrasound scheduled for 09/21/19 ER warnings for heavy bleeding or severe pain - CONSULT MATERNAL MEDICINE ULTRASOUND Preferred Location: [place] - TOTAL BETA HCG ASSAY - TOTAL BETA HCG ASSAY; Future Return to clinic in 2 days for repeat beta level and ultrasound. Discussed treatment options. Reviewed patient instructions and provided printed copy. at 7w4d This visit did not involve counseling and coordination that comprised more than 50% of the visit time. documented in this encounter Plan of Treatment Date Type Specialty Care Team Description 09/21/2019 Fitness And Wellness Coordinator Visit OB Satellites Lab, Mati 09/21/2019 Fitness And Wellness Coordinator Visit Maternal Medicine 10/06/2019 Routine Visit OB Satellites Risk, Huu-Etvlr-Mu/Hig h Name Type Priority Associated Diagnoses Date/Time TOTAL BETA HCG ASSAY LAB Routine Threatened , 09/19/2019 4:11 PM CDT antepartum Name Type Priority Associated Diagnoses Order Schedule TOTAL BETA HCG ASSAY LAB Routine Threatened , Expected: 09/21/2019, antepartum Expires: 09/18/2020 Health Maintenance Due Date Last Done Comments [...] Associated Diagnosis Comments POCT URINALYSIS W/O Routine 09/19/2019 3:27 Supervision of high Results for this SPECIFIC GRAVITY PM CDT risk in procedure are in first trimester the results section. documented in this encounter Results POCT URINALYSIS W/O SPECIFIC GRAVITY (09/19/2019 3:27 PM CDT) POCT PH U . 5 - 8 mg/dl POCT U LEUK EST . Negative - Negative POCT U NIT . Negative - Negative POCT U PROT trace Negative - Negative POCT U GLU negative Negative - Negative POCT U KETONE . Negative - Negative POCT U BLD . Negative - Negative Specimen Urine - URINE, CLEAN CATCH documented in this encounter Visit Diagnoses Diagnosis Supervision of high risk in first trimester - Primary Unspecified high-risk Threatened , antepartum documented in this encounter Insurance Payer Benefit Plan Subscriber ID Effective Dates Phone Address Type / Group MEDICAID [facility] [place] PENDING 2019[address]ending [address] [address] documented as of this encounter Advance Directives Type Date Recorded Patient Die Cast Operator Explanation Advance Directives and Living Will Power of Horse Stud Worker
--- OUTSIDE RECORDS SUMMARY | 2019-09-30 15:08 | XMS REPORT | Summary of Care ---
:1990 Author Organization [facility] Address [address] [place] [address] Care Team Providers Name Role Phone Lisbet Chatterjee Primary Care Provider Reason for Visit Reason Comments ULTRASOUND Encounter Details Date Type Department Care Team Description 09/22/2019 Telephone [facility] Lisbet Chatterjee, KALEY ULTRASOUND [address] [place] [address] [address] [phone] [place] [address] Allergies Active Allergy Reactions Severity [...] examination 10/17/2014 11/23/2014 Overview: ICD10 Diagnosis Term Market Development Trainer Utility Screening for STD (sexually transmitted disease) 10/17/2014 11/23/2014 General counseling and advice for contraceptive management 10/17/20142015 Overview: ICD10 Diagnosis Term Market Development Trainer Utility Other general counseling and advice for contraceptive 05/09/2013 07/20/2013 management History of section, classical 04/04/2013 10/17/2014 Immune to rubella 12/08/2012 04/21/2013 Rash and other nonspecific skin eruption 10/15/2012 04/21/2013 Overview: Resolved. Supervision of other high-risk 09/16/2012 07/20/2013 Overview: ICD10 Diagnosis Term Market Development Trainer Utility Screening examination for pulmonary tuberculosis 09/16/2012 [...] delivered 10/03/2008 09/16/2012 Overview: ICD10 Diagnosis Term Market Development Trainer Utility Threatened premature labor, antepartum(644.03) 09/27/2008 10/03/2008 Early onset of delivery with baby delivered 09/07/2007 09/16/2012 Overview: ICD10 Diagnosis Term Market Development Trainer Utility Other infants, 500-749 grams(765.12) 09/07/2007 09/16/2012 Insufficient care 09/07/2007 09/16/2012 Breech presentation delivered 09/07/2007 09/16/2012 Overview: ICD10 Diagnosis Term Market Development Trainer Utility anemia 09/07/2007 09/16/2012 Overview: ICD10 Diagnosis Term Market Development Trainer Utility Routine or child health check 03/19/2007 09/16/2012 Overview: 10yr, 11yr, 12yr, 13yr, 14yr, 15yr Acute pharyngitis 03/19/2007 09/16/2012 Overview: viral Abdominal pain 03/19/2007 09/16/2012 Overview: ICD10 Diagnosis Term Market Development Trainer Utility Other and unspecified diseases of upper [...] Description 10/06/2019 Routine Visit OB Satellites Risk, Yji-Dydgy-Zc/High Health Maintenance Due Date Last Done Comments [...] Type Group [facility] MOM CHIP [id number] 2019-Present [facility] [phone] CHOICE documented as of this encounter Advance Directives Type Date Recorded Patient Acid Retort Operator Explanation Advance Directives and Living Will Power of Audio Visual Engineer
--- OUTSIDE RECORDS SUMMARY | 2019-09-30 15:08 | XMS REPORT | Summary of Care ---
:1990 Author Organization [facility] Address [address] [place] [address] Care Team Providers Name Role Phone Lisbet Chatterjee [facility] Primary Care Provider Reason for Visit Reason Comments Assessment vaginal discharge Encounter Details Date Type Department Care Team Description 09/30/2019 Telephone [facility]- Lisbet Chatterjee, Assessment ( vaginal [facility] discharge) [address] [facility] [address] [place], [place] [id number] Allergies Active Allergy Reactions Severity Noted Date Comments Nitrofurantoin Monohyd/M-Cryst Rash 10/30/2014 Penicillins Rash 12/01/2018 documented as of this encounter (statuses as of 09/30/2019) Medications No known medicationsdocumented as of this encounter (statuses as of 09/30/2019) Active Problems Problem Noted Date UTI in [...] as of this encounter (statuses as of 09/30/2019) Resolved Problems Problem Noted Date Resolved Date Family planning counseling 05/01/2016 09/06/2019 Well woman exam without gynecological exam 05/01/2016 09/06/2019 Screen for STD (sexually transmitted disease) 05/01/2016 09/06/2019 Mixed hyperlipidemia 05/01/2016 09/06/2019 Urinary tract infection, site not specified 10/17/2014 05/01/2016 Encounter for routine gynecological examination 10/17/2014 11/23/2014 Overview: ICD10 Diagnosis Term Awake Overnight Counselor Utility Screening for STD (sexually transmitted disease) 10/17/2014 11/23/2014 General counseling and advice for contraceptive management 10/17/20142015 Overview: ICD10 Diagnosis Term Awake Overnight Counselor Utility Other general counseling and advice for contraceptive 05/09/2013 07/20/2013 management History of section, classical 04/04/2013 10/17/2014 Immune to rubella 12/08/2012 04/21/2013 Rash and other nonspecific skin eruption 10/15/2012 04/21/2013 Overview: Resolved. Supervision of other high-risk 09/16/2012 07/20/2013 Overview: ICD10 Diagnosis Term Awake Overnight Counselor Utility Screening examination for pulmonary tuberculosis 09/16/2012 [...] delivered 10/03/2008 09/16/2012 Overview: ICD10 Diagnosis Term Awake Overnight Counselor Utility Threatened premature labor, antepartum(644.03) 09/27/2008 10/03/2008 Early onset of delivery with baby delivered 09/07/2007 09/16/2012 Overview: ICD10 Diagnosis Term Awake Overnight Counselor Utility Other infants, 500-749 grams(765.12) 09/07/2007 09/16/2012 Insufficient care 09/07/2007 09/16/2012 Breech presentation delivered 09/07/2007 09/16/2012 Overview: ICD10 Diagnosis Term Awake Overnight Counselor Utility anemia 09/07/2007 09/16/2012 Overview: ICD10 Diagnosis Term Awake Overnight Counselor Utility Routine or child health check 03/19/2007 09/16/2012 Overview: 10yr, 11yr, 12yr, 13yr, 14yr, 15yr Acute pharyngitis 03/19/2007 09/16/2012 Overview: viral Abdominal pain 03/19/2007 09/16/2012 Overview: ICD10 Diagnosis Term Awake Overnight Counselor Utility Other and unspecified diseases of upper respiratory tract 03/19/20072012 Contusion of foot 03/19/2007 09/16/2012 Overview: right documented as of this encounter (statuses as of 09/30/2019) Immunizations Name Administration Dates Next Due HEPATITIS [...] Description 10/06/2019 Routine Visit OB Satellites Risk, Ckn-Pvxoz-Ot/High Health Maintenance Due Date Last Done Comments [...] Type Group CHIP BR[facility]GET CHC MOM CHIP [id number] 2019-Present [facility] [phone] [employer] CHOICE documented as of this encounter Advance Directives Type Date Recorded Patient Multi Disciplined Language Analyst Explanation Advance Directives and Living Will Power of Finishing Supervisor Plastic Sheets
[2019-09-30 16:55] LABS: Urine Blood 1+ (NEG); Urine Glucose NEGATIVE (NEG); Urine Protein NEGATIVE (NEG); Urine pH 6.5 (5.0-7.0)
[2019-09-30 17:04] LABS: Absolute Lymphocytes (CBC) 2.1 K/uL (0.7-4.9); Basophils % 0.3 % (0-1.3); Hematocrit 34.5 % (36.0-45.0); Lymphocytes % 21.1 % (15.3-44.8); RBC Red Blood Cell Count 3.98 M/uL (3.86-4.86)
[2019-09-30 17:06] LABS: ALT/SGPT 17 U/L (12-78); AST/SGOT 16 U/L (15-37); Alkaline Phosphatase 60 U/L (45-117); BUN Blood Urea Nitrogen 10 mg/dL (7-18); Bicarbonate 26 mmol/L (21-32); Bilirubin Total 0.1 mg/dL (0.2-1.0); Glucose Level 88 mg/dL (74-106); Potassium 3.8 mmol/L (3.5-5.1); Protein, Total 7.2 g/dL (6.4-8.2); Sodium Level 138 mmol/L (136-145)
[2019-09-30 17:33] LABS: Urine Appearance CLEAR; Urine Bilirubin NEGATIVE (NEG); Urine Blood 1+ (NEG); Urine Color YELLOW; Urine Glucose NEGATIVE (NEG); Urine Protein NEGATIVE (NEG); Urine Urobilinogen 0.2 mg/dL (0.2-1.0); Urine pH 6.5 (5.0-7.0)
[2019-09-30 17:40] LABS: Urine Microscopic Reflex ORDER UMIC
[2019-09-30 17:57] LABS: Urine Bacteria 20-50 /HPF (<20); Urine RBC NONE SEEN /HPF (NONE SEEN)
--- NOTE | 2019-09-30 18:23 | EDPHYS ---
Physician Documentation [facility] Name: Kellie Ortega Age: 29 yrs Sex: Female : 1990 Arrival Date: 09/30/2019 Time: 15:04 Bed 17 Private MD: ED Physician Donavon Farris HPI: 09/29 16:07 This 29 yrs old Female presents to ER via Ambulatory with complaints of ps1 Abdominal Pain, <12 wks Preg. 16:07 Pt currently at 7 wks EGA. No VB. States that she has left flank pain and ps1 brown discharge from vagina for last 2 days. Pain is intermittent and left flank to groin. 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 No fever. No sexual activity in last 48 hours. No dysuria, urgency, VB. . 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 - Social history:: Smoking status: Patient denies any tobacco usage or history of. ROS: 16:07 Constitutional: Negative for fever, chills, and weight loss, Eyes: Negative for injury, ps1 pain, redness, and discharge, Cardiovascular: Negative for chest pain, palpitations, and edema, Respiratory: Negative for shortness of breath, cough, wheezing, and pleuritic chest pain, Abdomen/GI: Negative for abdominal pain, nausea, vomiting, diarrhea, and constipation, Skin: Negative for injury, rash, and discoloration, Neuro: Negative for headache, weakness, numbness, tingling, and seizure. 16:07 : Positive for pelvic pain, vaginal discharge. Exam: 16:07 Constitutional: This is a well developed, well nourished patient who is awake, alert, ps1 and in no acute distress. Head/Face: Normocephalic, atraumatic. Eyes: Pupils equal round and reactive to light, extra-ocular motions intact. Lids and lashes normal. Conjunctiva and sclera are non-icteric and not injected. Cardiovascular: Regular rate and rhythm. No gallops, murmurs, or rubs. Normal PMI, no JVD. No pulse deficits. Respiratory: Lungs have equal breath sounds bilaterally, clear to auscultation and percussion. No rales, rhonchi or wheezes noted. No increased work of breathing, no retractions or nasal flaring. Skin: Warm, dry with normal turgor. Normal color with no rashes, no lesions, and no evidence of cellulitis. 16:07 Abdomen/GI: Inspection: abdomen appears normal, Palpation: abdomen is soft and non-tender, . Vital Signs: 15:47 BP 115 / 80; Pulse 71; Resp 18; Temp 98.5; Pulse Ox 100% on R/A; Weight 58.97 kg; ph Height 5 ft. 2 in. (157.48 cm); 17:00 BP 115 / 80; Pulse 70; Resp 18; Pulse Ox 100% on R/A; wh 18:30 BP 107 / 66; Pulse 65; Resp 18; Pulse Ox 98% on R/A; wh 15:47 Body Mass Index 23.78 (58.97 kg, 157.48 cm) ph Procedures: 16:07 Ultrasound: Type: OB, Transabdominal US performed in multiple views. Single IUP. FHT ps1 with doppler m/mode 171. Not anatomical study. . MDM: 16:33 Patient medically screened. ps1 09/29 16:15 Order name: Wet Prep; Complete Time: 17:39 ps1 09/29 16:15 Order name: CBC with Diff; Complete Time: 17:28 ps1 09/29 16:15 Order name: CMP; Complete Time: 17:18 ps1 09/29 16:36 Order name: Urine Dipstick--Ancillary (enter results); Complete Time: 16:56 eb 09/29 16:36 Order name: Urine --Ancillary (enter results); Complete Time: 16:56 eb 09/29 16:57 Order name: Urinalysis; Complete Time: 18:17 ps1 09/29 18:20 Interpretation: Abnormal: UESTR TRACE. ps1 09/29 16:15 Order name: Urine Dipstick-Ancillary (obtain specimen); Complete Time: 16:25 ps1 09/29 17:41 Order name: Urine Microscopic Only; Complete Time: 18:17 EDMS 09/29 18:17 Interpretation: Abnormal: UBACT 20-50; SQEPI 5-10; UWBC <5. ps1 09/29 17:58 Order name: Urine Culture EDMS Administered Medications: No medications were administered Disposition: 09/30/19 18:22 Discharged to Home. Impression: UTI in . - Condition is Stable. - Discharge Instructions: and Urinary Tract Infection. - Prescriptions for Keflex 500 mg Oral Capsule - take 1 capsule by ORAL route every 8 hours for 10 days; 30 capsule. - Medication Reconciliation Form, Thank You Letter, Antibiotic Education, Prescription Opioid Use form. - Follow up: Private Physician; When: As needed; Reason: Further diagnostic work-up, Recheck today's complaints, Continuance of care, Re-evaluation by your physician. Follow up: Emergency Department; When: As needed; Reason: Fever > 102 F, Trouble breathing, Worsening of condition. - Problem is new. - Symptoms are unchanged. Signatures: Dispatcher [employer] Kathe Arboleda RN RN doretha Altamirano, Donavon Rogers MD MD ps1 Corrections: (The following items were deleted from the chart) 18:17 18:17 UBACT 20-50; SQEPI 5-10; UWBC <5. ps1 ps1 18:20 18:20 UESTR TRACE. ps1 ps1 19:09 18:22 09/30/2019 18:22 Discharged to Home. Impression: UTI in . Condition is wh Stable. Forms are Medication Reconciliation Form, Thank You Letter, Antibiotic Education, Prescription Opioid Use. Follow up: Private Physician; When: As needed; Reason: Further diagnostic work-up, Recheck today's complaints, Continuance of care, Re-evaluation by your physician. Follow up: Emergency Department; When: As needed; Reason: Fever > 102 F, Trouble breathing, Worsening of condition. Problem is new. Symptoms are unchanged. ps1
--- NOTE | 2019-09-30 18:23 | ER ---
Nurse's Notes [facility] Name: Kellie Ortega Age: 29 yrs Sex: Female : 1990 Arrival Date: 09/30/2019 Time: 15:04 Bed 17 Private MD: Diagnosis: UTI in Presentation: 09/29 15:45 Onset of symptoms was September 30, 2019. wh 15:47 Chief complaint: Patient states: Vaginal bleeding and LLQ and low back pain, describes ph bleeding as light flow, brownish in color, approx 7 weeks gestation. Coronavirus screen: The patient has NOT traveled to a country currently being monitored by the [facility] within the last 14 days. The patient has NOT had contact with any known and/or suspected case of coronavirus. Ebola Screen: No symptoms or risks identified at this time. Initial Sepsis Screen: Does the patient meet any 2 criteria? No. Patient's initial sepsis screen is negative. Does the patient have a suspected source of infection? No. Patient's initial sepsis screen is negative. Risk Assessment: Do you want to hurt yourself or someone else? Patient reports no desire to harm self or others. 15:47 Method Of Arrival: Ambulatory ph 15:47 Acuity: FOREST 3 ph [employer]: 15:45 Verified wh Historical: - Allergies: 15:50 PENICILLINS; ph - PMHx: 15:50 None; ph - Immunization history:: Adult Immunizations unknown. - Social history:: Smoking status: Patient denies any tobacco usage or history of. Screenin:45 Abuse screen: Denies threats or abuse. Denies injuries from another. Nutritional wh screening: No deficits noted. Tuberculosis screening: No symptoms or risk factors identified. Fall Risk None identified. Assessment: 15:45 General: Appears in no apparent distress. Behavior is calm, cooperative, appropriate wh for age. Pain: Complains of pain in left flank pain Pain radiates to groin Pain currently is 4 out of 10 on a pain scale. Pain began 2-3 days ago. Neuro: Level of Consciousness is awake, alert, obeys commands, Oriented to person, place, time, situation, Appropriate for age. Cardiovascular: Heart tones S1 S2. Respiratory: Airway is patent Respiratory effort is even, unlabored, Respiratory pattern is regular, symmetrical, Breath sounds are clear bilaterally. GI: Abdomen is flat, non-distended, Bowel sounds present X 4 quads. Abd is soft and non tender X 4 quads. : Reports discharge. EENT: No signs and/or symptoms were reported regarding the EENT system. Derm: Skin is intact, Skin is pink, warm \T\ dry. normal. Musculoskeletal: Circulation, motion, and sensation intact. 15:53 Reassessment: MD at bedside doing ultrasound. FHT 173. wh 17:15 Reassessment: Patient appears in no apparent distress at this time. No changes from previously documented assessment. Patient and/or family updated on plan of care and expected duration. Pain level reassessed. Patient is alert, oriented x 3, equal unlabored respirations, skin warm/dry/pink. 18:45 Reassessment: Patient appears in no apparent distress at this time. No changes from previously documented assessment. Patient and/or family updated on plan of care and expected duration. Pain level reassessed. Patient is alert, oriented x 3, equal unlabored respirations, skin warm/dry/pink. Vital Signs: 15:47 BP 115 / 80; Pulse 71; Resp 18; Temp 98.5; Pulse Ox 100% on R/A; Weight 58.97 kg; ph Height 5 ft. 2 in. (157.48 cm); 17:00 BP 115 / 80; Pulse 70; Resp 18; Pulse Ox 100% on R/A; wh 18:30 BP 107 / 66; Pulse 65; Resp 18; Pulse Ox 98% on R/A; wh 15:47 Body Mass Index 23.78 (58.97 kg, 157.48 cm) ph ED Course: 15:04 Patient arrived in ED. ag5 15:40 Donavon Farris MD is Attending Physician. ps1 15:41 Diana Altamirano is Primary Nurse. wh 15:49 Triage completed. ph 15:50 Arm band placed on Patient placed in an exam room. ph 15:50 Patient has correct armband on for positive identification. Placed in gown. Bed in low wh position. Call light in reach. Side rails up X 1. Pulse ox on. NIBP on. 19:09 No provider procedures requiring assistance completed. Patient did not have IV access wh during this emergency room visit. Administered Medications: No medications were administered Outcome: 18:22 Discharge ordered by . ps1 19:09 Discharged to home ambulatory. wh 19:09 Condition: stable 19:09 Discharge instructions given to patient, Instructed on discharge instructions, follow up and referral plans. medication usage, POC Demonstrated understanding of instructions, follow-up care, medications, POC Prescriptions given X 1. 19:09 Patient left the ED. Signatures: Kathe Son, RN RN Adarsh, Diana Donavon Farris MD MD ps1 Gaskin, Ajare ag5 Corrections: (The following items were deleted from the chart) 18:46 15:53 Reassessment: at bedside doing ultrasound [facility]
[2019-09-30 19:15] VITALS: TEMP 98.5
[2019-09-30 19:27] VITALS: BP 107/66; O2SAT 98
== END 2019-09-30 19:09 | disposition home or self-care (01) ==
LOC: ER 15:01
DX: O23.41 Unspecified infection of urinary tract in pregnancy, first trimester (principal); Z3A.01 Less than 8 weeks gestation of pregnancy; Z88.0 Allergy status to penicillin
CPT/HCPCS: 36415; 80053; 81003; 81015; 81025; 85025; 87086; 87088; 87210; 99283